=== PATIENT | female | born 1970 | race Hispanic/Latino ===

== ENCOUNTER 2019-03-30 20:33 | Emergency (ER) | payer BC, SELFPAY ==
--- NOTE | ~2019-03-30 | XR_ITS ---
EXAMINATION: XR chest 2V 03/30/2019 22:05 INDICATION: Cough PROCEDURE: 2 view chest COMPARISON: 03/05/2019 FINDINGS: The lungs are clear. The cardiomediastinal silhouette is within normal limits. There are no pleural effusions. There is no pneumothorax suspected. IMPRESSION: 1: NO ACUTE CARDIOPULMONARY DISEASE. Reviewed, dictated and finalized at [facility]. Reviewed, dictated and finalized at location A. KEN HANGER
--- NOTE | ~2019-03-30 | CT_ITS ---
EXAMINATION: CTA chest PE protocol DATE: 03/30/2019 23:53 ERGONOMIST INDICATION: Chest pressure. Tachycardia. Cough. TECHNIQUE: Computed tomographic angiography (CTA) of the chest was performed with 100 mL Omnipaque-35 0 intravenous contrast. The dose-length product was 272.63 mGy-cm. Maximum intensity projection 3D-re constructions of the aorta and other arteries were constructed by the technologist on a separate work station. Automated exposure control and iterative reconstruction technique were employed. COMPARISON: Chest x-ray dated 03/30/2019 FINDINGS: The study is technically adequate without evidence for pulmonary embolism. Heart size is no rmal. No pleural or pericardial effusion. No thoracic lymphadenopathy. No endobronchial lesions. No f ocal airspace consolidation. No evidence for aortic aneurysm or dissection. No pneumothorax. 2 mm lef t upper lobe nodule, image 37, likely benign. No acute osseous abnormality. There are multiple nonobs tructing bilateral renal stones, largest in the right kidney measuring approximately 1 cm. IMPRESSION: 1. No evidence for pulmonary embolism. No acute cardiopulmonary disease. 2: Nonobstructing bilateral nephrolithiasis. Reviewed, dictated and finalized at location A. NOMIST
[2019-03-30 20:40] VITALS: BP 149/78; PULSE 78; RESP 20; TEMP 37.3; O2SAT 100
[2019-03-30 21:36] LABS: Basophils Percent Auto 0.3 % (0.2-1.2); Eosinophils Absolute Auto 0.1 K/mm3 (0-0.3); Eosinophils Percent Auto 0.8 % (0-4.4); Hematocrit 40.2 % (37.0-47.0); Hemoglobin 12.9 g/dL (12.0-15.0); Immature Granulocyte Absolute 0.02 K/mm3 (0.00-0.031); Immature Granulocyte Percent A 0.3 % (0-0.5); Immature Platelet Fraction Pct 18.6 % (0.9-11.2); Lymphocytes Absolute Auto 2.52 K/mm3 (0.9-3.2); Lymphocytes Percent Auto 32.7 % (18.3-44.2); Mean Corpuscular HGB Conc 32.1 g/dl (32-36); Mean Corpuscular Hemoglobin 30.6 pg (26-34); Mean Corpuscular Volume 95.3 fl (80-100); Mean Platelet Volume 13.4 fl (7.4-10.4); Monocytes Absolute Auto 0.6 K/mm3 (0.1-0.6); Monocytes Percent Auto 7.3 % (2.6-8.5); Neutrophils Absolute Auto 4.5 K/mm3 (1.3-6.7); Neutrophils Percent Auto 58.6 % (45.5-73.1); Platelet Count Result 161 k/mm3 (150-375); Red Blood Count 4.22 M/mm3 (4.2-5.4); Red Cell Distribution Width 12.7 % (11.5-14.5); White Blood Count 7.7 K/mm3 (4.5-10.0)
--- NOTE | 2019-03-30 21:50 | ED.URI ---
HPI - URI/Sore Throat General Chief Complaint: Upper Respiratory Infection Stated Complaint: COUGH, CHEST PRESSURE, FAST HR Time Seen by Provider: 03/30/19 21:35 Source: patient Mode of arrival: ambulatory Limitations: no limitations History of Present Illness HPI Narrative: Patient is a 48-year-old female who presents for evaluation of chest pain, cough, congestion. Patient reports pressure over her center chest which is been intermittent over the past 4 days. Symptoms seem to come and go and have no aggravating or relieving factors. She does not notice a worsening of the symptoms with exertion. No shortness of breath. She does report a slight cough whenever she experiences the chest pressure. No abdominal pain, no nausea or vomiting. No fevers. She does report cough and congestion. Chest reports that she can feel palpitations when the chest pain comes on, but denies any palpitations. Patient denies leg swelling or redness. Patient has a history of hypertension. She does not smoke. No recent car or air travel. No recent surgeries. No history of diabetes. Related Data Allergies Allergy/AdvReac Type Severity Reaction Status Date / Time No Known Allergies Allergy Mild Verified 03/30/19 20:43 Review of Systems Review of Systems: Narrative: CONSTITUTIONAL: Denies fever, chills, or sweats. EYES: Denies visual changes, redness, or discharge. ENT: Reports rhinorrhea and congestion, denies sore throat CARDIOVASCULAR: Denies current chest pain, palpitations, or edema. RESPIRATORY: Reports cough, denies shortness of breath GASTROINTESTINAL: Denies abdominal pain, nausea, vomiting, or diarrhea. GENITOURINARY: Denies dysuria or hematuria. SKIN: Denies rash or itching. MUSCULOSKELETAL: Denies back pain, joint pain, or myalgia. NEUROLOGIC: Denies headache, numbness, or weakness. All systems reviewed & are unremarkable except as noted in HPI and below PMFSH Past Medical History Medical History (Updated 03/31/19 @ 01:26 by Marzena Aly MD) Anxiety Depression History of breast implant removal bilateral, 07 February 2019 Hypertension Kidney stone Surgical History Surgical History Hx of breast implants, bilateral Social History Social History Smoking status: Never smoker Second hand tobacco smoke exposure: No Alcohol intake: never Substance use: never Exam Narrative: Exam Narrative: GENERAL: Well-appearing, well-nourished, and in no acute distress. HEAD: Normocephalic, atraumatic. EYES: PERRLA and EOMI. ENT: Nares clear, no rhinorrhea or epistaxis. Mucous membranes moist. NECK: Supple. CHEST: Clear to auscultation. No respiratory distress. No chest wall tenderness. HEART: Regular rate and rhythm. No murmur heard. Normal peripheral pulses. ABDOMEN: Soft, nontender, nondistended, normal active bowel sounds. EXTREMITIES: Normal range of motion. No edema. No pain with palpation of bilateral calves. No erythema. SKIN: Warm, dry, no rash. NEURO: No focal deficits. Alert and oriented X3. Course Course Emergency Course: Patient is presenting with several symptoms including cough and cold type symptoms as well as chest pressure. Pressure has been intermittent over the past 4 days. Seems less consistent with anginal type pain, but when patient was offered nitroglycerin and morphine, patient declined stating that she currently was not having any pain. Patient with normal EKG without ischemic changes. Initial troponin is normal. CTA performed which shows no evidence of aortic pathology or pulmonary embolism. Repeat troponin also normal. Influenza is negative. Other laboratory results are reassuring. Patient had no recurrent chest pain in the ER, in the setting of low heart score, I feel she may follow-up outpatient for atypical chest pain, as for the patient's upper respiratory infection I advised symptomatic care. Kaylee
--- NOTE | 2019-03-30 21:51 | ECG_ITS ---
Measurements Intervals Victor Rate: 72 P: 3 OK: 144 QRS: 6 QRSD: 77 T: 16 QT: 379 QTc: 417 Interpretive Statements SINUS RHYTHM NORMAL ECG Electronically Signed On 03-31-2019 6:46:21 EP TECH by Kevin Ellis D.O.
[2019-03-30 22:09] LABS: Blood Urea Nitrogen 11 mg/dL (7-17); Calcium 9.4 mg/dL (8.4-10.2); Carbon Dioxide 22 mmol/L (22-30); Chloride 100 mmol/L (98-107); Estimated CRCL calculation 82 ml/min; Estimated Glomerular Filt Rate > 60; Glucose 118 mg/dL (65-105); Potassium 3.9 mmol/L (3.4-5.0); Sodium 138 mmol/L (137-145)
[2019-03-30 22:16] VITALS: BP 140/79; PULSE 75; RESP 15; O2SAT 99
[2019-03-30] MEDS: ACETAMINOPHEN 500 MG TABLET 1000 MG PO (22:21)
[2019-03-30] MEDS: ONDANSETRON INJ 4 MG/2 ML VIAL IV PUSH (22:22)
[2019-03-30] MEDS: SODIUM CHLORIDE 0.9% IV 1,000 ML 999 ML IV CONT (22:22)
[2019-03-30 22:31] LABS: Lipase 138 U/L (23-300)
[2019-03-30 22:35] LABS: INR 0.9; Prothrombin Time 12.1 Seconds (11.1-14.7)
[2019-03-30 22:36] LABS: Add Urine Microscopic? YES; Appearance Urine Clear (Clear); Bilirubin Urine Negative (Negative); Blood Urine Negative (Negative); Color Urine Straw (Yellow); Glucose Urine UA Negative (Negative); Ketones Urine Negative (Negative); Leukocyte Esterase Ur Trace LEU/UL (Negative); Mucus Urine Rare /lpf; Nitrate Urine Negative (Negative); Protein Urine Negative (Negative); Specific Grav Ur 1.015 (1.001-1.035); Squamous Epithelial Cell Urine Rare /hpf (Few); Urobilinogen Urine Negative mg/dL (<2.0); WBC Urine 16-20 /hpf
[2019-03-30 22:36] LABS: Partial Thromboplastin Time 24.9 SECONDS (22.3-36.8)
[2019-03-30 22:44] LABS: Troponin I < 0.012 ng/mL (0.000-0.034)
[2019-03-30 23:49] VITALS: BP 127/70; PULSE 82; RESP 17; O2SAT 100
[2019-03-31 00:02] VITALS: BP 118/67; PULSE 72; RESP 14; O2SAT 100
[2019-03-31 00:03] LABS: D Dimer 0.47 ug/mL (<0.48)
[2019-03-31 00:45] VITALS: PULSE 73; RESP 16; O2SAT 99
[2019-03-31 01:04] LABS: Troponin I < 0.012 ng/mL (0.000-0.034)
[2019-03-31 01:30] VITALS: BP 121/71; PULSE 69; RESP 14; O2SAT 98
--- NOTE | 2019-04-07 07:00 | PC.NURSE ---
LATE ENTRY This note is being entered to document information to the patient's record. The following information was omitted on [03/30/19], ns stopped [id number] by [anderson hernandez].
== END 2019-03-31 01:49 | disposition home or self-care (01) ==
PROVIDERS: Emergency Medicine; Emergency Provider Emergency Medicine; PCP Family Medicine
DX: R07.89 Other chest pain (principal); J06.9 Acute upper respiratory infection, unspecified; F41.9 Anxiety disorder, unspecified; F32.9 Major depressive disorder, single episode, unspecified; I10 Essential (primary) hypertension; Z87.442 Personal history of urinary calculi
CPT/HCPCS: 36415; 71046; 71275; 80048; 81001; 83690; 84484; 85025; 85055; 85380; 85610; 85730; 87086; 87804; 93005; 96374; 99284; A9270; J2405; J7030; Q9967

== ENCOUNTER → 2019-10-25 14:03 | Outpatient (CLI) | payer BC, SELFPAY ==
--- NOTE | ~2019-10-25 | MM_ITS ---
EXAMINATION: MM screening yina BI w jessica HISTORY: Screening mammogram TECHNIQUE: Craniocaudal and mediolateral oblique 3-D tomosynthesis images were obtained and synthetic 2-D images were generated. CAD analysis was submitted and interpreted. COMPARISON: 08/04/2018 bilateral implant digital screening mammogram 04/21/2018 bilateral implant diagnostic mammogram 06/22/2017, 04/24/2016 bilateral implant digital screening mammogram examinations BREAST PARENCHYMAL COMPOSITION: The breasts are heterogeneously dense, which may obscure small masses . FINDINGS: Breast implants have been removed as of January 2019. There is no evidence of suspicious m ass, calcification, or architectural distortion to suggest malignancy in either breast. There has bee n no suspicious interval change. IMPRESSION: 1. No mammographic evidence of malignancy. 2. Recommend routine screening mammography in one year. BI-RADS Category 1: Negative Reviewed, dictated and finalized at location [facility].
== END ==
DX: Z12.31 Encounter for screening mammogram for malignant neoplasm of breast (principal)
CPT/HCPCS: 77063; 77067

== ENCOUNTER → 2020-11-22 12:33 | Outpatient (CLI) | payer BC, SELFPAY ==
--- NOTE | ~2020-11-22 | MM_ITS ---
EXAMINATION: MM screening yina BI w jessica HISTORY: Screening TECHNIQUE: Craniocaudal and mediolateral oblique 3-D tomosynthesis images were obtained and synthetic 2-D images were generated. CAD analysis was submitted and interpreted. COMPARISON: Comparison to multiple prior studies sequentially, with oldest reviewed study dated 03/26. BREAST PARENCHYMAL COMPOSITION: The breasts are heterogenously dense, which may obscure small masses. FINDINGS: There is no evidence of suspicious mass, calcification, or architectural distortion to sugg est malignancy in either breast. There has been no suspicious interval change. IMPRESSION: 1. No mammographic evidence of malignancy. 2. Recommend routine screening mammography in one year. BI-RADS Category 1: Negative Reviewed, dictated and finalized at location A.
== END ==
DX: Z12.31 Encounter for screening mammogram for malignant neoplasm of breast (principal)
CPT/HCPCS: 77063; 77067

== ENCOUNTER 2020-12-18 13:17 | Emergency (ER) | payer BC, SELFPAY ==
[2020-12-18 13:26] VITALS: BP 141/79; PULSE 78; RESP 16; TEMP 36.9; O2SAT 100
--- NOTE | 2020-12-18 13:51 | ED.URI ---
HPI - URI/Sore Throat General Chief Complaint: Upper Respiratory Infection Stated Complaint: Cough History of Present Illness HPI Narrative: This is a 50-year-old female that presents to urgent care [place]-speaking complaining of cough and congestion for 2 weeks. Patient states that the symptoms continue to get worse and are not improving. Related Data Home Medications Medication Instructions Recorded Confirmed amitriptyline 12/18/20 hydroxyzine HCl 12/18/20 lisinopril 12/18/20 magnesium oxide mg 12/18/20 Allergies Allergy/AdvReac Type Severity Reaction Status Date / Time No Known Allergies Allergy Mild Verified 12/18/20 13:23 Review of Systems Review of Systems: cough, sinus pressure, congestion pain in head All systems reviewed & are unremarkable except as noted in HPI and below PMFSH Past Medical History Medical History Anxiety Depression Hypertension Kidney stone Prediabetes Vitamin D deficiency Surgical History Surgical History History of abdominoplasty 2016 History of breast implant removal bilateral, 07 February 2019 Hx of breast implants, bilateral 2017 Family History Family History Other No pertinent family history Social History Social History Smoking status: Never smoker Second hand tobacco smoke exposure: No Alcohol intake: never Substance use: never Comments At time as signature, I have reviewed and agree with nursing past medical, social, surgical and family history. Please see nursing chart for further information. There is no relevant family history pertinent to the presenting complaint. Exam Narrative: GENERAL:illappearing, well-nourished, and in no acute distress. HEAD:Normocephalic, atraumatic. EYES: PERRLA . ENT: Nares clear, moderate rhinorrhea sinus pressure T-zone pain with headache CHEST: Clear to auscultation. No respiratory distress. HEART: Regular rate and rhythm. ABDOMEN: Soft, nontender, nondistended, normal active bowel sounds. EXTREMITIES: Normal range of motion. No edema. SKIN: Warm, dry, no rash. NEURO: No focal deficits. Alert and oriented x3. Course Vital Signs Vital signs: Vital Signs Temperature 98.5 F 12/18/20 13:26 Pulse Rate 78 12/18/20 13:26 Respiratory Rate 16 12/18/20 13:26 Blood Pressure 141/79 H 12/18/20 13:26 Pulse Oximetry 100 12/18/20 13:26 Temperature 98.5 F 12/18/20 13:26 Pulse Rate 78 12/18/20 13:26 Respiratory Rate 16 12/18/20 13:26 Blood Pressure 141/79 H 12/18/20 13:26 Pulse Oximetry 100 12/18/20 13:26 MDM - URI/Sore Throat Differential Diagnosis Differential diagnosis: Likely upper respiratory infection, croup, sinusitis, bronchitis, influenza and pharyngitis Discharge Plan Discharge Clinical Impression: Sinusitis, Nausea & vomiting Patient Disposition: Home, Self-Care Condition: Stable Instructions: Antibiotic Form, Rhinosinusitis (ED) Additional Instructions: Recommend antihistamine such as Benadryl at night time and Claritin/Zyrtec/Michelle during the day Also, recommend symptomatic treatment includes: rest, fluids, and increase humidity of the air at home. Recommend Acetaminophen or nonsteroidal anti-inflammatory agents (NSAIDs) as directed in the bottle to reduce fever and/pain/headache. Avoid smoking/second-hand smoke. Limit visits to areas with large crowds. Please schedule a follow-up visit with your personal physician for further evaluation and treatment within 3-5days. Including recheck and discussion of your blood pressure. If your symptoms persist, change or worsen significantly before you can contact your personal physician then please, without delay, go to the emergency department for further evaluation Prescriptions:
== END 2020-12-18 14:10 | disposition home or self-care (01) ==
PROVIDERS: Emergency Provider Nurse Practitioner Family
DX: J32.9 Chronic sinusitis, unspecified (principal); R11.2 Nausea with vomiting, unspecified; I10 Essential (primary) hypertension; E55.9 Vitamin D deficiency, unspecified; R73.03 Prediabetes; F41.9 Anxiety disorder, unspecified; F32.A Depression, unspecified
CPT/HCPCS: 99213; G0463

== ENCOUNTER 2021-07-22 10:54 | Emergency (ER) | payer BC, SELFPAY ==
--- NOTE | ~2021-07-22 | CT_ITS ---
EXAMINATION: CT brain wo con DATE: 07/22/2021 12:20 INDICATION: Fall. Patient struck occipital region. Headache. TECHNIQUE: Computed tomography (CT) of the head was performed without intravenous contrast. The mA wa s adjusted according to patient size. Iterative reconstruction technique was employed. Exam dose: 60 5.33 mGy-cm total exam DLP. COMPARISON: None FINDINGS: No intracranial mass lesion or hemorrhage or cerebrovascular accident. No midline shift or mass effect. Normal hillman-white matter differentiation. Normal ventricular size. No subdural or epidur al hematoma is detected. The orbital contents are unremarkable. The mastoid air cells and included paranasal sinuses are normally developed and aerated. No fracture or bone destruction of the cranial vault. IMPRESSION: Negative Reviewed, dictated and finalized at [facility]. Reviewed, dictated and finalized at location A. IMPRESSION: Negative
[2021-07-22 10:58] VITALS: BP 154/90; PULSE 82; RESP 20; TEMP 36.7; O2SAT 100
[2021-07-22 13:26] VITALS: BP 118/68; PULSE 72; RESP 16; TEMP 36.5; O2SAT 100
--- NOTE | 2021-07-22 18:26 | ED.FALL ---
HPI - Fall General Chief Complaint: Fall Stated Complaint: fall, hit head, blood thinner Time Seen by Provider: 07/22/21 11:23 Source: patient Mode of arrival: ambulatory Limitations: no limitations History of Present Illness HPI Narrative: 50-year-old female presents today with complaints of posterior head pain since today when she fell. Patient was drinking throughout the day and had fallen backwards hitting the posterior side of her head. Patient was since then has noted a knot, headache. Patient denies vision changes, nausea. Patient alert and oriented x4, no change in mental status, at bedside. Patient denies LOC at time of injury. Patient concerned just due to still having pain. Related Data Home Medications Medication Instructions Recorded Confirmed amitriptyline 25 mg tablet 12/18/20 hydroxyzine HCl 25 mg tablet 12/18/20 lisinopril 10 mg tablet 12/18/20 magnesium oxide 400 mg (241.3 mg mg 12/18/20 magnesium) tablet Allergies Allergy/AdvReac Type Severity Reaction Status Date / Time No Known Allergies Allergy Mild Verified 12/18/20 13:23 Review of Systems Review of Systems: CONSTITUTIONAL: Denies fever, chills, or sweats. EYES: Denies visual changes, redness, or discharge. ENT: Denies rhinorrhea, congestion, sore throat, or otalgia. CARDIOVASCULAR: Denies chest pain, palpitations, or edema. RESPIRATORY: Denies cough or dyspnea. GASTROINTESTINAL: Denies abdominal pain, nausea, vomiting, or diarrhea. GENITOURINARY: Denies dysuria or hematuria. SKIN: Denies rash or itching. MUSCULOSKELETAL: Denies back pain, joint pain, or myalgia. NEUROLOGIC: Headache, posterior head pain with swelling. Denies headache, numbness, dizziness, or weakness. PSYCHIATRIC: Denies anxiety or depression. [facility] Past Medical History Medical History Anxiety Depression Hypertension Kidney stone Prediabetes Vitamin D deficiency Surgical History Surgical History History of abdominoplasty 2016 History of breast implant removal bilateral, 07 February 2019 Hx of breast implants, bilateral 2017 Family History Family History Other No pertinent family history Social History Social History Smoking status: Never smoker Second hand tobacco smoke exposure: No Alcohol intake: never Substance use: never Exam Narrative: GENERAL: Well-appearing, well-nourished, and in no acute distress. HEAD: Swelling noted to posterior dorsal head. Tenderness with palpation. EYES: PERRLA and EOMI. ENT: Nares clear, no rhinorrhea or epistaxis. Mucous membranes moist. Oropharynx without tonsillar hypertrophy exudate or other lesions. Bilateral TMs pearly hillman nonbulging NECK: Supple. No adenopathy or masses. No carotid bruits or JVD. No spinal process tenderness. CHEST: Clear to auscultation. No respiratory distress. No wheezes rales or rhonchi HEART: Regular rate and rhythm. No murmur heard. Normal peripheral pulses. ABDOMEN: Soft, nontender, nondistended, normal active bowel sounds. EXTREMITIES: Normal range of motion. No edema. SKIN: Warm, dry, no rash. NEURO: No focal deficits. Alert and oriented x3. PSYCH: Normal mood and affect. Course Vital Signs Vital signs: Vital Signs Temperature 36.7 C 07/22/21 10:58 Pulse Rate 82 07/22/21 10:58 Respiratory Rate 20 07/22/21 10:58 Blood Pressure 154/90 H 07/22/21 10:58 Pulse Oximetry 100 07/22/21 10:58 Oxygen Delivery Room Air 07/22/21 10:58 Temperature 36.5 C 07/22/21 13:26 Pulse Rate 72 07/22/21 13:26 Respiratory Rate 16 07/22/21 13:26 Blood Pressure 118/68 07/22/21 13:26 Pulse Oximetry 100 07/22/21 13:26 Oxygen Delivery Room Air 07/22/21 10:58 MDM - Fall MDM Narrative Medical decision brennen
== END 2021-07-22 13:28 | disposition home or self-care (01) ==
PROVIDERS: Emergency Provider Nurse Practitioner Family
DX: S00.93XA Contusion of unspecified part of head, initial encounter (principal); I10 Essential (primary) hypertension; W19.XXXA Unspecified fall, initial encounter
CPT/HCPCS: 70450; 99284

== ENCOUNTER 2023-01-10 13:42 | Emergency (ER) | payer BC, SELFPAY ==
--- NOTE | ~2023-01-10 | XR_ITS ---
EXAMINATION: XR chest 2V 01/10/2023 14:35 INDICATION: Dry cough and wheezing PROCEDURE: 2 view chest COMPARISON: 03/30/2019 FINDINGS: The lungs are clear. The cardiomediastinal silhouette is within normal limits. There are no pleural effusions. There is no pneumothorax suspected. IMPRESSION: 1: NO ACUTE CARDIOPULMONARY DISEASE. Reviewed, dictated and finalized at location A. SWITCHER
[2023-01-10 13:57] VITALS: BP 172/85; PULSE 82; RESP 16; TEMP 37.2; O2SAT 99
--- NOTE | 2023-01-10 14:12 | ED.URI ---
HPI - URI/Sore Throat General Chief Complaint: Upper Respiratory Infection Stated Complaint: chest hurts,back hurts,cough Time Seen by Provider: 01/10/23 14:30 Source: patient Mode of arrival: ambulatory Limitations: no limitations History of Present Illness HPI Narrative: 52-year-old female presents with complaint of dry cough, fatigue, chest congestion for 3-4 days. Afebrile. Has been sleeping on couch due to coughing. Now complaining of left upper back pain with coughing. Has not taken any [id number] pain med to treat. No chest pain or shortness of breath. Does not want COVID testing. taking [id number] DayQuil NyQuil cold and flu. All systems reviewed and negative except as noted above. Related Data Home Medications Medication Instructions Recorded Confirmed magnesium oxide 400 mg (241.3 mg mg 12/18/20 magnesium) tablet ascorbic acid (vitamin C) 250 mg 01/10/23 tablet aspirin 81 mg chewable tablet 01/10/23 atorvastatin 20 mg tablet mg 01/10/23 ferrous sulfate 325 mg (65 mg mg 01/10/23 iron) tablet (FeroSul) hydrochlorothiazide 25 mg tablet mg 01/10/23 Allergies Allergy/AdvReac Type Severity Reaction Status Date / Time No Known Allergies Allergy Mild Verified 01/10/23 14:03 Review of Systems Review of Systems: CONSTITUTIONAL: Denies fever, chills, or sweats. EYES: Denies visual changes, redness, or discharge. ENT: Denies rhinorrhea, congestion, sore throat, or otalgia. CARDIOVASCULAR: Denies chest pain, palpitations, or edema. RESPIRATORY: Reports cough chest congestion. Denies dyspnea. GASTROINTESTINAL: Denies abdominal pain, nausea, vomiting, or diarrhea. GENITOURINARY: Denies dysuria or hematuria. SKIN: Denies rash or itching. MUSCULOSKELETAL: Denies back pain, joint pain, or myalgia. NEUROLOGIC: Denies headache, numbness, or weakness. PSYCHIATRIC: Denies anxiety or depression. All other systems reviewed are negative, except as documented in HPI. [facility] Past Medical History Medical History Anxiety Depression Hypertension Kidney stone Prediabetes Vitamin D deficiency Surgical History Surgical History History of abdominoplasty 2016 History of breast implant removal bilateral, 07 February 2019 Hx of breast implants, bilateral 2017 Family History Family History Other No pertinent family history Social History Social History Smoking status: Never smoker Second hand tobacco smoke exposure: No Alcohol intake: never Substance use: never Comments At time of signature, agree with nursing past medical, surgical, social and family history. There is no relevant family history pertinent to the presenting complaint. Exam Narrative: GENERAL: This is a well-nourished, well-developed patient, in no apparent distress. HEAD: normocephalic, atraumatic. EYES: PERRL. Sclera clear/white. Vision is grossly intact. EARS: External ears normal, auditory canals clear and without drainage, TMs normal without perforation. Hearing grossly intact. NOSE: External nose normal with no obvious nasal discharge, nares without redness, no rhinorrhea. THROAT: Mucous membranes moist, posterior pharynx clear. NECK: Neck supple, non-tender without lymphadenopathy, masses or thyromegaly. CARDIOVASCULAR: Regular rate and rhythm without murmurs, gallops, or rubs. RESPIRATORY: Clear to auscultation. Breath sounds equal bilaterally. No wheezes, rales, or rhonchi. SKIN: warm, Dry, intact with no suspicious lesions or rash, good texture and turgor. NEURO: awake, alert, and oriented to person, place and time. There were no obvious focal neurologic abnormalities. EXTREMITIES: No joint tenderness, effusion, or edema noted. BACK: Muscular tenderness left rhomboi
== END 2023-01-10 14:54 | disposition home or self-care (01) ==
PROVIDERS: Emergency Provider Nurse Practitioner Family; PCP Hospitalist
DX: J06.9 Acute upper respiratory infection, unspecified (principal); S29.012A Strain of muscle and tendon of back wall of thorax, initial encounter; X58.XXXA Exposure to other specified factors, initial encounter; I10 Essential (primary) hypertension; R73.03 Prediabetes; Z79.82 Long term (current) use of aspirin
CPT/HCPCS: 71046; 99213; G0463

== ENCOUNTER 2023-09-19 14:41 | Emergency (ER) | payer BC, SELFPAY ==
[2023-09-19 14:50] VITALS: BP 154/94; PULSE 85; RESP 16; TEMP 37.2; O2SAT 99
--- NOTE | 2023-09-19 15:19 | ED.EYEPROB ---
HPI - Eye Problem General Chief complaint: Eye Problems Stated complaint: right side eye pain Time Seen by Provider: 09/19/23 14:55 Source: patient Mode of arrival: ambulatory Limitations: no limitations History of Present Illness HPI Narrative: Myriam is a 52-year-old female patient presenting to the clinic today with complaints of right-sided temporal pain this been going on for 4 days and gradually getting worse. Feels as though there is a pulsing throbbing sensation over the right temporal lobe. Denies any visual changes. Does have some nausea without headache or vomiting. Related Data Home Medications Medication Instructions Recorded Confirmed magnesium oxide 400 mg (241.3 mg 400 mg PO DAILY 12/18/20 09/19/23 magnesium) tablet ascorbic acid (vitamin C) 250 mg 250 mg PO DAILY 01/10/23 09/19/23 tablet aspirin 81 mg chewable tablet 81 mg PO DAILY 01/10/23 09/19/23 atorvastatin 20 mg tablet 20 mg PO DAILY 01/10/23 09/19/23 ferrous sulfate 325 mg (65 mg 325 mg PO DAILY 01/10/23 09/19/23 iron) tablet (FeroSul) hydrochlorothiazide 25 mg tablet 25 mg PO DAILY 01/10/23 09/19/23 metformin 500 mg tablet 500 mg PO DAILY 09/19/23 09/19/23 Allergies Allergy/AdvReac Type Severity Reaction Status Date / Time No Known Allergies Allergy Mild Verified 09/19/23 14:43 Review of Systems Review of Systems: Pertinent positives per HPI. Patient denies any fever, chills, rash, headache, visual changes, dizziness, cough, runny nose, sore throat, shortness of breath, chest pain, palpitations, nausea, vomiting, diarrhea, constipation, abdominal pain, or any urinary issues. [facility] Past Medical History Medical History Anxiety Depression Hypertension Kidney stone Prediabetes Vitamin D deficiency Surgical History Surgical History History of abdominoplasty 2016 History of breast implant removal bilateral, 07 February 2019 Hx of breast implants, bilateral 2017 Family History Family History Other No pertinent family history Social History Social History Smoking status: Never smoker Second hand tobacco smoke exposure: No Alcohol intake: never Substance use: never Comments At the time of my signature, I reviewed and agree with the nursing past medical, surgical, social, and family history. There is no relevant family history pertinent to the patient complaint. Exam Narrative: General: Well-developed, well nourished, in no apparent distress Head: Normocephalic, atraumatic Eyes: Pupils equally round and reactive to light bilaterally, EOM intact, sclera and conjunctive clear, no discharge, lids normal, tender to palpation over the right temporal area Ears: TMs intact and clear, ear canals clear, no drainage, grossly hearing normal. Nose: Nares patent, no discharge, no inflammation, no sinus tenderness. Mouth: Oropharynx without lesions or masses, good dentition, MMM. Neck: Supple, trachea midline, no enlargement of anterior or posterior cervical nodes, no thyroid masses or goiter palpable. Cardio: Regular rate and rhythm, s1 and s2 normal, no murmur appreciated. Resp: Clear to auscultation bilaterally anteriorly and posteriorly, no rhonchi, rales, wheezing or rubs Course Course Emergency Course: Portions of this record may have been created with voice recognition software. Level of Care: Express Care Visit Vital Signs Vital signs: Vital Signs Temperature 37.2 C 09/19/23 14:50 Pulse Rate 85 09/19/23 14:50 Respiratory Rate 16 09/19/23 14:50 Blood Pressure 154/94 H 09/19/23 14:50 Pulse Oximetry 99 09/19/23 14:50 Oxygen Delivery Room Air 09/19/23 14:50 Temperature 37.2 C 09/19/23 14:50 Pulse Rate 85 09/19/23 14:50 Respirato
== END 2023-09-19 15:18 | disposition short-term general hospital (02) ==
PROVIDERS: Emergency Provider Nurse Practitioner Family; PCP Hospitalist
DX: R51.9 Headache, unspecified (principal); I10 Essential (primary) hypertension; R73.03 Prediabetes; Z79.82 Long term (current) use of aspirin
CPT/HCPCS: 99212; G0463

== ENCOUNTER 2024-11-05 06:37 | Emergency (ER) | payer BC, SELFPAY ==
--- NOTE | ~2024-11-05 | XR_ITS ---
Examination: XR hand LT min 3V Clinical History: Injuries, pain Comparison: None Technique: 3 views left hand Findings/impression: 1. Equivocal for nondisplaced fracture distal tuft fourth finger. 2. Otherwise no acute abnormality identified left hand. Reviewed, dictated and finalized at location R.
[2024-11-05 06:38] VITALS: BP 138/88; PULSE 110; RESP 20; TEMP 36.8; O2SAT 98
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
--- NOTE | 2024-11-05 08:00 | PC.NURSE ---
Had conversation with pt about recieving a teatnus shot and her friend said that she was pretty sure that the patient had had one in the last 5 years.
--- NOTE | 2024-11-05 08:29 | PC.NURSE ---
Wound care has been performed on both the third and fourth digit of the left hand. Wounds were cleansed with saline soaked sterile gauze and cotton swabs. Pt did show some distress while cleansing was being performed. Wound was covered with saline soaked gauze until it is decided what the proper dressing is.
--- NOTE | 2024-11-05 09:51 | PC.NURSE ---
Pt was asleep in the room when I went in to reassess and ask about the teatnus shot again with the mri supervisor.
[2024-11-05] MEDS: TETANUS,DIPHTHERIA,AC PERTUSSIS ADULT (0.5 ML) BOOSTRIX IM (11:26)
--- NOTE | 2024-11-05 11:30 | PC.NURSE ---
TERE car repairer helper was used to talk to the patient about the Tdap vaccine. Fieldwork Coordinator was Myles #[phone]. He assisted with asking about the last time she recieved a Tdap vaccine and it came to conclusion that it was requried for her. Pt agreed to the vaccine after explanation of the vaccine schedule and the reasoning about why it was needed.
[2024-11-05 12:28] VITALS: BP 146/93; PULSE 88; RESP 18; O2SAT 100
--- NOTE | 2024-11-15 08:00 | PC.NURSE ---
/LATE ENTRY /This note is being entered to document information to the patient's record. The following information was omitted on 11/05/2024, by Shelley Jurado Per Dr. Shah, verbal order read back for finger splint application done for lt ring finger.
== END 2024-11-05 12:31 | disposition home or self-care (01) ==
PROVIDERS: Emergency Provider Emergency Medicine; PCP Hospitalist
DX: S62.665A Nondisplaced fracture of distal phalanx of left ring finger, initial encounter for closed fracture (principal); S61.315A Laceration without foreign body of left ring finger with damage to nail, initial encounter; F32.A Depression, unspecified; F41.9 Anxiety disorder, unspecified; Z87.442 Personal history of urinary calculi; I10 Essential (primary) hypertension; Z23 Encounter for immunization; X58.XXXA Exposure to other specified factors, initial encounter
CPT/HCPCS: 11730; 29130; 73130; 90471; 90715; 99284; J2003

== ENCOUNTER 2025-01-09 13:36 | Outpatient (CLI) | payer BC, SELFPAY ==
--- NOTE | ~2025-01-09 | XR_ITS ---
EXAMINATION: XR finger 3rd LT min 2V, 01/09/2025 13:50 HEAVY DUTY CUSTODIAN HISTORY: M20.019 - Mallet finger of unspecified finger(s) COMPARISON: No comparisons available. Findings: No acute fracture or malalignment. No significant degenerative changes. Soft tissues unremarkable. Impression: No acute fracture or malalignment. Reviewed, dictated and finalized at location P. Y DUTY CUSTODIAN Impression: No acute fracture or malalignment.
--- OUTSIDE RECORDS SUMMARY | 2025-01-09 14:44 | XMS_ITS | Clinical Summary ---
Author Organization [facility] [address] [place] [address] Address [address] [place] [address] Care Team Providers Care Street Light Servicer Supervisor Name Role Phone Radha Peterson MD Primary Care Pro vider Allergies No known active allergies Medications magnesium oxide 400 mg magnesium Capsule Take 400 mg by mouth daily at bedtime. 1 Active hydroCHLOROthia zide 25 mg tablet Take 25 mg by mouth daily. 3 Active ferrous sulfate 325 mg (65 mg iron) tablet Take 325mg ferrous sulfate every other day. Take with 250mg ascorbic acid tablet of half a glass of orange juice to enhance absorption. Take two hours before, or four hours after, ingestion of antacids/heartb urn. Take separately from calcium-contain ing foods and beverages (milk), calcium supplements, cereals, dietary fiber, tea, coffee, and eggs. 3 Active Active Problems Problem Noted Date Diagnosed Date Gastroesophageal reflux disease 04/16/2021 Overview (04/23/2021): Added automatically from request for surgery [id number] Kidney stone 03/18/2021 Overview (04/23/2021): Added automatically from request for surgery [id number] Pure hypercholesterolemia 02/11/2021 Overview (04/23/2021): Last Assessment & Plan: ASVCD 1.7% 10y risk, discussed with patient Hypertension, essential 07/19/2020 Overview (04/23/2021): Last Assessment & Plan: Lisinopril d/c 2/2 cough Will start hydrochlorothiazide given history of calcium oxalate stones Moderate episode of recurrent major depressive d isorder 06/22/2020 Overview (04/23/2021): Last Assessment & Plan: Significantly improved on amitriptyline, continue Coronary atherosclerosis 07/11/2015 Chest pain 06/26/2015 Overview (04/23/2021): Last Assessment & Plan: AFVSS, exam benign EKG: NSR Check labs to risk stratify History of hypertension, but BP within normal limits. 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 Gender Identity Not on file Sexual Orientation Not on file Last Filed Vital Signs Vital Sign Reading Time Taken Comments Blood Pressure 134/86 02/17/2023 10:57 AM CAT SCANNER OPERATOR Pulse - - Temperature - - Respiratory Rate - - Oxygen Saturation - - Inhaled Oxygen Concentration - - Weight 70.2 kg (154 lb 12.8 oz) 024 10:57 AM CAT SCANNER OPERATOR Height 162.6 cm (5' 4) 11/17/2022 2:30 PM CDT Body Mass Index 26.57 11/17/2022 2:30 PM CDT Plan of Treatment Health Maintenance Due Date Last Done Comments HEPATITIS B VACCINES (1 of 3 - 19+ 3-dose series) 12/10/1990 COLORECTAL SCREENING 12/10/2016 Colorectal Cancer Screening 12/10/2016 FIT-DNA Q 3 years 12/10/2016 FIT/FOBT Q 1 year 12/10/2016 Flex Sig/CT Colonography Q 5 years 12/10/2016 ZOSTER VACCINE (1 of 2) 12/10/2021 BREAST CANCER SCREENING 08/16/2023 08/15/2022 PAP SMEAR 04/23/2024 04/23/2021 INFLUENZA VACCINE (#1) 2024 COVID-19 Vaccine ( season) 2024 07/10/2020, 06/25/2020, 06/04/2020 CERVICAL CANCER SCREENING 04/23/2026 HPV/Cotest (21-29) 04/23/2026 04/23/2021 HPV/Cotest (30-65) 04/23/2026 04/23/2021 DTAP/TDAP/TD VACCINES (2 - T d or Tdap) 12/06/2029 12/07/2019 Procedures Procedure Name Priority Date/Time Associated Diagnosis Comments CERV/VAG CYTO AGE BASED SCREEN PAP W CT/NG, TRICH Routine 04/23/2021 2:26 PM CDT Encounter for gynecological examination without abnormal finding from Last 3 Months or Most Recently Relevant to Health Maintenance Results * CERV/VAG CYTO AGE BASED SCREEN PAP W CT/NG, TRICH (04/23/2021 2:26 PM CDT) SEE NOTE [facility] Comment: This order for age-based cervical cancer and STI screening follows ACOG guidelines(PB 168, 140, IQU259). See individual assays for performing site location. CLINICAL INFORMATION [facility] Comment:Information not prov ided LAST MENSTRUAL PERIOD [facility] Comment:INFORMATION NOT PROV IDED PREV PAP: [facility] Comment:INFORMATION NOT PROV IDED PREV BX: [facility] Comment:INFORMATION NOT PROV IDED SOURCE [facility] Comment:Endocervix ADEQUACY: [facility] Comment: Satisfactory for evaluation. Endocervical/transformation zone component absent. Age and/or menstrual status not provided PAP INTERP [facility] Comment:Negative for intraep ithelial lesion or malignancy. COMMENT (PAP TEST) [facility] Comment: This Pap test has been evaluated with computer assisted technology. MANAGER LINUX: [facility] Comment: AMW, CT(ASCP) CT screening location: [place] [address] [place] [address] REVIEW MANAGER LINUX: [facility] Comment: FOX MCDONNELL(ASCP) CT screening location: [place] [address] [place] [address] SEE NOTE [facility] Comment: EXPLANATORY NOTE: The Pap is a screening test for cervical cancer. It is not a diagnostic test and is subject to false negative and false positive results. It is most reliable when a satisfactory sample, regularly obtained, is submitted with relevant clinical findings and history, and when the Pap result is evaluated along with historic and current clinical information. HPV E6/E7 Not Detected Not Detected [facility] Comment: Methodology: Seam Presser-Mediated Amplification This assay detects E6/E7 viral messenger RNA (mRNA) from 14 high-risk HPV types (16,18,31,33,35,39,45,51,52,56,58,59,66,68). The analytical performance characteristics of this assay have been determined by [email or web address]. The modifications have not been cleared or approved by the FDA. This assay has been validated pursuant to the CLIA regulations and is used for clinical purposes. For additional information, please refer to http://[email or web address]/faq/NTT490s2 (This link if provided for information/ educational purposes only.) C TRAC RNA NOT DETECTED NOT DETECTED [facility] N.GONORRHOEAE RNA, TMA NOT DETECTED NOT DETECTED [facility] SEE NOTE [facility] Comment: The analytical performance characteristics of this assay, when used to test SurePath(TM) specimens have been determined by [email or web address]. The modifications have not been cleared or approved by the FDA. This assay has been validated pursuant to the CLIA regulations and is used for clinical purposes. For additional information, please refer to https://[email or web address]/faq/IVL964 (This link is being provided for information/ educational purposes only.) TRICHOMONAS VAGINALIS,QUALITAT CHERELLE,PAP VIAL NOT DETECTED NOT DETECTED [facility] Comment: The analytical performance characteristics of this assay have been determined by [email or web address]. The modifications have not been cleared or approved by the FDA. This assay has been validated pursuant to the CLIA regulations and is used for clinical purposes. For additional information, please refer to [email or web address] faq/Trichomonastma (This link is being provided for information/ educational purposes only.) Test Performed at: [email or web address] [id number] [address] [id number] David Valdivia D.O., MPH SL Genital SWAB OF ENDOCERVIX / Unknown 04/23/2021 2:26 PM CDT 04/24/2021 4:21 AM CDT Daniel Haynes MD PATHOLOGY/CYTOLOGY ORD ERABLES Final Result [facility] [address] [place] [address] from Last 3 Months or Most Recently Relevant to Health Maintenance Insurance Care Teams Street Light Servicer Supervisor Relationship Specialty Start Date End Date Radha Peterson MD PCP - General Family Practice 04/23/21
--- OUTSIDE RECORDS SUMMARY | 2025-01-09 14:44 | XMS_ITS | Clinical Summary ---
Author Organization [facility] Address [address] [place] [address] Care Team Providers Care Commercial Pilot Name Role Phone Radha Peterson MD Primary Care Pro vider Chandler Gamble MD Unavailable [phone] Allergies No known active allergies Medications ascorbic acid (VITAMIN C) 250 mg tabletIndications: History of iron deficiency anemia Take 1 tablet (250 mg total) by mouth every other day With iron 45 tablet 1 5 Active aspirin 81 mg chewable tabletIndications: Coronary artery disease involving tlingit [place] coronary artery of tling[place] & [place] heart without angina pectoris,Atheroscl erosis of aorta Take 1 tablet (81 mg total) by mouth daily 90 tablet 5 026 Active ferrous sulfate 325 mg (65 mg of elemental iron) tabletIndications: Iron Deficiency Anemia Take 325mg ferrous sulfate every other day. Take with 250mg ascorbic acid tablet of half a glass of orange juice to enhance absorption. Take two hours before, or four hours after, ingestion of antacids/heart burn. Take separately from calcium-contai sabino foods and beverages (milk), calcium supplements, cereals, dietary fiber, tea, coffee, and eggs. 45 tablet 1 5 Active hydroCHLOROthiazid e (HYDRODIURIL) 25 mg tabletIndications: Hypertension associated with diabetes (HCC),History of kidney stones Take 1 tablet (25 mg total) by mouth daily 90 tablet 1 5 Active magnesium oxide 400 mg magnesium capsuleIndications :Migraine without status migrainosus, not intractable, unspecified migraine type Take 400 mg by mouth nightly 90 capsule 1 5 Active metFORMIN (GLUCOPHAGE) 1,000 mg tabletIndications: Controlled type 2 diabetes mellitus with complication, without long-term current use of insulin Take 1 tablet (1,000 mg total) by mouth 2 (two) times a day with meals 180 tablet 1 5 026 Active atorvastatin (LIPITOR) 80 mg tabletIndications: Mixed diabetic hyperlipidemia associated with type 2 diabetes mellitus (HCC),Coronary artery disease involving tling[place] coronary artery of tling[place] & [place] heart without angina pectoris,Atheroscl erosis of aorta Take 1 tablet (80 mg total) by mouth daily 90 tablet 1 5 026 Active norethindrone (MICRONOR) 0.35 mg tablet Take 1 tablet (0.35 mg total) by mouth daily 1 po qd at same time of day 84 tablet 3 5 Active ondansetron (ZOFRAN) 4 mg tablet Take 1 tablet (4 mg total) by mouth every 6 (six) hours 10 tablet 5 Active Active Problems Problem Noted Date Diagnosed Date Anxiety 10/13/2024 Depression 10/13/2024 Prediabetes 10/13/2024 Vitamin D deficiency 10/13/2024 Mixed diabetic hyperlipidemi a associated with type 2 diabetes mellitus 06/30/2024 Assessment & Plan (06/30/2024 2:34 PM CDT): Recheck Migraine without status migrainosus, not intract able 09/30/2023 Assessment & Plan (06/30/2024 2:27 PM CDT): ubrelvy as needed, avoid triptans given CAD Assessment & Plan (12/31/2023 1:56 PM PRINCIPAL WEB DEVELOPER): Stable ubrelvy as needed, avoid triptans given CAD Assessment & Plan (09/30/2023 3:41 PM CDT): Start ubrelvy as needed, avoid triptans given chest pain History of iron deficiency anemia 09/15/2022 Assessment & Plan (06/30/2024 2:27 PM CDT): Continue iron supplement Assessment & Plan (12/31/2023 1:33 PM PRINCIPAL WEB DEVELOPER): Continue iron supplement Assessment & Plan (09/24/2023 2:17 PM CDT): Continue iron supplement Assessment & Plan (03/19/2023 1:53 PM PRINCIPAL WEB DEVELOPER): Recheck Continue iron supplement Assessment & Plan (09/15/2022 1:46 PM CDT): Recent cbc within normal limits Recheck Continue iron supplement Controlled type 2 diabetes m ellitus with complication, without long-term current use of insulin 03/17/2022 Assessment & Plan (06/30/2024 2:27 PM CDT): Lab Results Component Value Date HGBA1C 6.6 (A) 06/30/2024 controlled Continue metformin 1000mg twice a day Assessment & Plan (12/31/2023 1:57 PM PRINCIPAL WEB DEVELOPER): Lab Results Component Value Date HGBA1C 6.2 09/24/2023 controlled Continue metformin 1000mg twice a day Assessment & Plan (09/30/2023 3:39 PM CDT): Lab Results Component Value Date HGBA1C 6.2 09/24/2023 Uncontrolled Recommend increasing metformin Assessment & Plan (03/19/2023 2:03 PM PRINCIPAL WEB DEVELOPER): Recheck A1c Restart metofmrin Assessment & Plan (09/15/2022 1:42 PM CDT): Lab Results Component Value Date HGBA1C 6.0 (H) 06/26/2022 Continue metformin Assessment & Plan (06/26/2022 1:13 PM CDT): Recheck a1c Continue metformin pending results Assessment & Plan (03/17/2022 1:47 PM PRINCIPAL WEB DEVELOPER): a1c 6.1>5.8 Continue metformin History of kidney stones 09/11/2021 Assessment & Plan (12/31/2023 1:33 PM PRINCIPAL WEB DEVELOPER): Following with urology Assessment & Plan (09/25/2021 1:21 PM CDT): Following with urology, s/p surgery Upcoming stent removal Gastroesophageal reflux disease 04/16/2021 Overview (04/16/2021): Added automatically from request for surgery [id number] Assessment & Plan (12/26/2021 1:17 PM PRINCIPAL WEB DEVELOPER): Try decreasing omeprazole to 20mg, let me know if worsenin/recurrent symptoms Assessment & Plan (09/25/2021 1:22 PM CDT): Reviewed EGD results Continue 40mg omeprazole Assessment & Plan (08/26/2021 8:52 AM CDT): Persistent symptoms Restart omeprazole Upcoming EGD Assessment & Plan (05/17/2021 2:28 PM CDT): Improved Continue omeprazole Upcoming EGD Discussed/given handout on diet/lifestyle modifications Atherosclerosis of aorta 02/11/2021 Assessment & Plan (12/31/2023 1:32 PM PRINCIPAL WEB DEVELOPER): Continue statin & 81mg ASA Assessment & Plan (09/24/2023 2:20 PM CDT): Continue statin & 81mg ASA Assessment & Plan (03/19/2023 1:53 PM PRINCIPAL WEB DEVELOPER): Continue statin & 81mg ASA Assessment & Plan (09/15/2022 1:43 PM CDT): Continue Continue statin & 81mg ASA Assessment & Plan (06/26/2022 1:14 PM CDT): Continue statin Assessment & Plan (09/25/2021 1:23 PM CDT): Continue statin Assessment & Plan (08/26/2021 8:55 AM CDT): Recheck lipids, recommend starting statin Assessment & Plan (05/17/2021 2:30 PM CDT): Discussed statin Desires to work on diet LDL 157>116 Assessment & Plan (02/11/2021 10:35 AM PRINCIPAL WEB DEVELOPER): ASVCD 1.7% 10y risk, discussed with patient Hypertension associated with diabetes 07/19/2020 Assessment & Plan (11/24/2024 5:25 PM CDT): Initially uncontrolled and symptomatic (although no severe symptoms) Given 0.1mg clonidine with improvement in blood pressure Recommend resuming hydrochlorothiazide later today as can experience rebound hypertension after clonidine Assessment & Plan (06/30/2024 2:27 PM CDT): Blood pressure controlled Continue hydrochlorothiazide Assessment & Plan (12/31/2023 1:29 PM PRINCIPAL WEB DEVELOPER): Blood pressure controlled Continue hydrochlorothiazide Assessment & Plan (09/24/2023 2:17 PM CDT): Blood pressure controlled Continue hydrochlorothiazide Assessment & Plan (03/19/2023 1:53 PM PRINCIPAL WEB DEVELOPER): Blood pressure controlled Continue hydrochlorothiazide Assessment & Plan (09/15/2022 1:42 PM CDT): Blood pressure at goal Continue hydrochlorothiazide Assessment & Plan (06/26/2022 1:13 PM CDT): Blood pressure at goal Continue hydrochlorothiazide Assessment & Plan (12/26/2021 1:16 PM PRINCIPAL WEB DEVELOPER): Blood pressure at goal, continue current medications Assessment & Plan (09/25/2021 1:28 PM CDT): Blood pressure at goal, continue current medications Assessment & Plan (08/26/2021 8:52 AM CDT): Continue hydrochlorothiazide Assessment & Plan (05/17/2021 2:26 PM CDT): Blood pressure at goal Continue 25mg hydrochlorothiazide Assessment & Plan (04/16/2021 2:31 PM PRINCIPAL WEB DEVELOPER): Lisinopril d/c 2/2 cough Will start hydrochlorothiazide given history of calcium oxalate stones Assessment & Plan (02/11/2021 10:34 AM PRINCIPAL WEB DEVELOPER): Blood pressure at goal, continue current medications Assessment & Plan (08/01/2020 3:26 PM CDT): Blood pressure elevated today, c/w home cuff Given blood pressure elevated above goal today and at home will start medications. Previously on hydrochlorothiazide, but desires trying a different medication Assessment & Plan (07/19/2020 1:29 PM CDT): Currently blood pressure at goal off medications Advised to bring home cuff in to compare to office readings (if persistently above goal at home would consider starting medications, currently still sounds borderline) Discussed lifestyle modification to help bring blood pressure down CAD (coronary artery disease) 07/11/2015 Assessment & Plan (06/30/2024 2:27 PM CDT): Continue statin & 81mg ASA Assessment & Plan (12/31/2023 1:30 PM PRINCIPAL WEB DEVELOPER): LDL <70 Continue statin & 81mg ASA Assessment & Plan (09/24/2023 2:18 PM CDT): LDL <70 Continue statin & 81mg ASA Assessment & Plan (03/19/2023 2:03 PM PRINCIPAL WEB DEVELOPER): Continue statin & 81mg ASA Assessment & Plan (09/15/2022 1:43 PM CDT): Continue Continue statin & 81mg ASA Chest pain 06/26/2015 Assessment & Plan (12/31/2023 1:57 PM PRINCIPAL WEB DEVELOPER): None in last several months, given # for cardiology if recurs Assessment & Plan (06/22/2020 10:34 AM CDT): AFVSS, exam benign EKG: NSR Check labs to risk stratify History of hypertension, but BP within normal limits. Recommend bringing cuff for next visit Resolved Problems Problem Noted Date Diagnosed Date Resolved Date Annual physical exam 12/26/2021 025 Assessment & Plan (09/24/2023 2:17 PM CDT): Reviewed PMH & FH Reviewed medications and supplements HCM: orders placed as needed Assessment & Plan (12/26/2021 1:33 PM PRINCIPAL WEB DEVELOPER): Reviewed PMH & FH PHQ Screening PHQ-2 Total Score (If total score is 3 or more points, staff should administer the PHQ-9): 0 PHQ-9 Total Score: 0 Reviewed medications and supplements HCM: orders placed as needed Moderate episode of recurren t major depressive disorder 06/22/2020 12/26/2021 Assessment & Plan (08/01/2020 3:25 PM CDT): Significantly improved on amitriptyline, continue Assessment & Plan (07/19/2020 1:23 PM CDT): PHQ Screening PHQ-2 Total Score (If total score is 3 or more points, staff should administer the PHQ-9): 2 PHQ-9 Total Score: 15, uncontrolled Denies suicidal ideation Side effects to lexapro will switch to amitriptyline for concurrent insomnia & diffuse body pain Assessment & Plan (06/22/2020 10:33 AM CDT): PHQ Screening PHQ-2 Total Score (If total score is 3 or more points, staff should administer the PHQ-9): 4 PHQ-9 Total Score: 11, uncontrolled Denies suicidal ideation Will start lexapro 10mg Encounters Date Type Department Care Team Description 12/28/2024 Results Follow-Up [facility] Urology [address] [place] [address] 11[address] [place] [address] Fredrick Barragan MD Calculus analysis-stone 12/20/2024 11:40 AM PRINCIPAL WEB DEVELOPER Office Visit [facility]) [facility] Urology [address] [place] [address] 11th [place] [address] Fredrick Barragan MD Nephrolithiasis (Primary Dx) 11/25/2024 9:15 AM CDT Office Visit [facility] Obstetrical Gynecology [address] [place] [phone] Mary Aldana MD Abnormal uterine bleeding (Primary Dx); Uterine leiomyoma, unspecified location; Polyp of corpus uteri 11/25/2024 8:30 AM CDT Ancillary Procedure [facility] Obstetrical Gynecology [address] [place] [phone] Abnormal uterine bleeding (AUB); Left ovarian cyst 11/24/2024 12:45 PM CDT - 11/24/2024 11:59 PM CDT Hospital Encounter [facility] Medical Office Bldg [facility] [address] [place] [address] [address] [place] [address] Screening mammogram, encounter for Discharge Disposition: Discharge to home or self care 11/24/2024 10:45 AM CDT Lab [facility] Office Building [address] [place] [id number] Controlled type 2 diabetes mellitus with complication, without long-term current use of insulin; Annual physical exam; Mixed diabetic hyperlipidemia associated with type 2 diabetes mellitus (HCC); Hypertension associated with diabetes (HCC) 11/24/2024 9:00 AM CDT Office Visit [facility] Primary Care at [address] [place] [address] Radha Peterson MD Hypertension associated with diabetes (HCC) (Primary Dx); Open fracture of left hand with routine healing, subsequent encounter; Controlled type 2 diabetes mellitus with complication, without long-term current use of insulin; Mixed diabetic hyperlipidemia associated with type 2 diabetes mellitus (HCC); Annual physical exam 11/24/2024 Results Follow-Up [facility] Medical [facility] Primary Care [address] [place] [address] [address] [place] [phone] Radha Peterson MD Albumin Creatinine Ratio, Urine, Lipid panel, Thyroid Function [place], Additional followed-up results: 5 11/17/2024 Telephone [facility] Primary Care at [address] [place] [address] Radha Peterson MD 11/14/2024 Telephone [facility] Primary Care at [place] [address] [place] [address] [address] [place] [phone] Radha Peterson MD DM Eye Exam 10/31/2024 Telephone [facility] Obstetrical Gynecology [address] [place] [address] [address] [place] [phone] Mary Aldana MD 10/31/2024 Telephone [facility] Obstetrical Gynecology [address] [place] [address] [address] [place] [phone] Mary Aldana MD 10/29/2024 7:58 PM CDT - 10/29/2024 11:45 PM CDT Emergency [facility] Emergency Department [address] [place] [address] David Lam Jr., MD Nephrolithiasis (Primary Dx); Dehydration Discharge Disposition: Discharge to home or self care 10/20/2024 Orders Only [facility] Medicine [facility] [address] [place] [address] [address] [place] [address] Fredrick Barragan MD 10/20/2024 Telephone [facility] Medicine [facility] Urology [address] [facility] 11th [place] [address] [place] [address] Kimberlee Kendrick 10/19/2024 Results Follow-Up [facility] Obstetrical Gynecology [address] [facility] [address] [place] [address] Mary Aldana MD Urine culture Urine, bladder 10/17/2024 5:28 PM CDT - 10/17/2024 11:59 PM CDT Hospital Encounter [facility] Lab [address] [place] [address] Dysuria Discharge Disposition: Discharge to home or self care 10/17/2024 2:00 PM CDT Clinical Support [facility] Obstetrical Gynecology [address] [facility] [address] [place] [address] Dysuria (Primary Dx) 10/17/2024 Telephone [facility] Obstetrical Gynecology [address] [facility] [address] [place] [address] Mary Aldana MD 10/13/2024 1:45 PM CDT Office Visit [facility] Obstetrical Gynecology [address] [facility] [address] [place] [phone] Mary Aldana MD Abnormal uterine bleeding (Primary Dx); Uterine leiomyoma, unspecified location; Left ovarian cyst 10/13/2024 Orders Only [facility] Obstetrical Gynecology [address] [facility] [address] [place] [address] Mary Aldana MD Abnormal uterine bleeding (AUB) (Primary Dx); Left ovarian cyst 10/13/2024 Telephone [facility] Obstetrical Gynecology [address] [facility] [address] [place] [phone] Mary Aldana MD from Last 3 Months Immunizations Immunization Administration Dates Next Due Influenza, Unspecified 11/19/2023(Deferred: Tory ent Refused) Meningococcal B, unspecified 06/30/2024(Deferred : Patient Refused) Pfizer SARS-CoV-2 Monovalent Vaccination (12+ Yrs) PURPLE 06/25/2020,06/04/2020 Pneumococcal Conjugate Pcv20 06/30/2024(Deferred : Patient Refused) Tdap 11/05/2024,12/07/2019 ZOSTER Recombinant 06/30/2024(Deferred: Patient Refused) Surgical History Surgery Date Site/Laterality Comments ABDOMINAL SURGERY TUMMY TUCK BREAST SURGERY BREAST IMPLANTS VAGINAL DELIVERY X3 ABDOMINAL SURGERY Tummy tuck and lipo Medical History Medical History Date Comments None to low serum cortisol r esponse with adrenocorticotrophic hormone (ACTH) stimulation test Depression Hypertension Hyperlipidemia Chest pain in 2020, lugo d holter monitor and stress test in 2021. Pt denies any chest pain recently HLD (hyperlipidemia) per EMR Kidney stone current-bilat. History of kidney stones multipl e episodes Umbilical hernia per EMR tiny f at containing Diverticulosis per EMR Last menstrual period (LMP) < 10 days ago GERD (gastroesophageal reflux disease) Family History Medical History Relation Name Comments Heart attack Father Avel bonilla Diabetes Mother Jodee bonilla Breast cancer Neg Hx Ovarian cancer Neg Hx Uterine cancer Neg Hx Relation Name Status Comments Father Avel bonilla (Age 60) Mother Jodee bonilla Alive Social History Tobacco Use Types Packs/Day Years Used Date Smoking Tobacco: Former Cigarettes Smokeless Tobacco: Never Tobacco Cessation:Counseling Given: Not Answered Alcohol Use Standard Drinks/Week Comments Yes 0 (1 standard drink = 0.6 oz pur e alcohol) PHQ-2 Answer Date Recorded PHQ-2 Total Score (If total score is 3 or more points, staff should administer the PHQ-9) 0 11/24/2024 PHQ-9 Answer Date Recorded PHQ-9 Total Score 7 09/24/2023 AUDIT-C Answer Date Recorded Q1: How often do you have a drink containing alc ohol? Monthly or less 11/24/2024 Q2: How many drinks containi ng alcohol do you have on a typical day when you are drinking? 1 or 2 11/24/2024 Q3: How often do you have si x or more drinks on one occasion? Never 11/24/2024 Personal Safety Answer Date Recorded Have you ever been in or are you currently in a harmful physical or emotional relationship or is someone making you feel afraid or unsafe? Denies 10/29/2024 Comments No Sex and Gender Information Value Date Recorded Sex Assigned at Not on file Legal Sex Female 8:56 PM PRINCIPAL WEB DEVELOPER Gender Identity Not on file Sexual Orientation Not on file Obstetrics History Para Term AB IAB SAB Ectopic Multiple Livin g Live Births 6 3 3 2 1 3 3 Date Outcome GA Total Labor Labor/2nd/3rd Weight Sex Type Anes PTL Serena A1 A5 Name Clin Term Vag-S pont Living Term Vag-S pont Living Term Vag-S pont Living SAB AB Last Filed Vital Signs Vital Sign Reading Time Taken Comments Blood Pressure 128/82 11/25/2024 9:06 AM CDT Pulse 82 11/24/2024 8:51 AM CDT Temperature 36.5 C (97.7 F) 11/24/2024 8:51 AM CDT Respiratory Rate 14 10/29/2024 11:0 0 PM CDT Oxygen Saturation 97% 11/24/2024 8:51 AM CDT Inhaled Oxygen Concentration - - Weight 72.5 kg (159 lb 12.8 oz) 11/25/2024 9:06 AM CDT Height 157.5 cm (5' 2) 11/25/2024 9:06 AM CDT Body Mass Index 29.23 11/25/2024 9:06 AM CDT Plan of Treatment Health Maintenance Due Date Last Done Comments Foot Exam 1971 Pneumococcal vaccine <65 (1 of 2 - PCV) 12/10/1990 Zoster Vaccine (1 of 2) 12/10/2021 Cervical Cancer Screening 08/10/2024 08/11/2023, 03/2023 Regular Well Visit/Exam 18-64 09/23/2024, 08/11/2023, 05/30/2022, Additional history exists Covid-19 Vaccine ( - 2024-2 6 season) 2024 06/25/2020, 06/04/2020 Influenza Vaccine (#1) 2024 Dilated Eye Exam 02/22/2025 02/23/2024, 02/23/2024 Hemoglobin A1C 05/25/2025 11/24/2024, 05/03/2024, 12/31/2023, Additional history exists Albumin Creatinine Ratio, Urine 11/24/2025 , 01/25/2024 Breast Cancer Screening-Mammogram 11/24/2025 11/24/2024, 10/21/2023, 08/15/2022, Additional history exists Depression Screening 11/24/2025 11/24/2024, 09/24/2023, 09/24/2023, Additional history exists Lipid Panel 11/24/2025 11/24/2024, 06/10, 01/25/2024, Additional history exists eGFR 11/24/2025 11/24/2024, 10/11, 10/29/2024, Additional history exists Colon Cancer Screening-Colonoscopy 08/29/20262021 DTaP/Tdap/Td Vaccine (3 - Td or Tdap) 11/05/2034 11/05/2024, 12/07/2019 Hepatitis C Screening Completed 05/11/2023 Hepatitis B Screening Completed 01/25/2024 Medical Devices Implanted Type Area Foundation Engineer Device Identifier Shelf Expiration Date Model / Serial / Lot [employer] [id number] Set Stent 26cm 5fr Universa 2 Pigtail Curve Ureter Hdrph - [id number] Implanted:Qty : 1 on 06/07/2021 by Leena Pena MD at [facility] Explanted:11/2021 by Leena Pena MD (Quantity not on file) Left: Ureter [employer] [id number] 03/12/2024 [id number] / / [id number] Explanted Type Area Foundation Engineer Device Identifier Shelf Expiration Date Model / Serial / Lot [employer] Inlay [place] 6fr 24cm Pusher Fluoro Marker Atraumatic Insertion Latex Free [id number] - [id number] Implanted:Qty: 1 on 09/11/2021 by Leena Pena MD at [facility] Explanted:Qty: 1 on 10/03/2021 by Leena Pena MD Stent [employer] [id number] 08/07/2025 [id number] / / [id number] [employer] [id number] Set Stent 24cm 5fr Universa 2 Pigtail Curve Ureter Aq Radopq - [id number] Explanted:Qty: 1 on 06/07/2021 by Leena Pena MD at [facility] Left: Ureter [employer] [id number] 03/18/2024 [id number] / / [id number] Procedures Procedure Name Priority Date/Time Associated Diagnosis Comments CALCULUS ANALYSIS-STONE Routine 12/27/2024 12:00 AM PRINCIPAL WEB DEVELOPER US PELVIS W ENDOVAGINAL Schedule Routine, Read Routine (OP Routine) 11/25/2024 8:19 AM CDT Abnormal uterine bleeding (AUB) Left ovarian cyst SCREENING MAMMOGRAM BILATERAL W BOBBY W IMPLANTS Schedule Routine, Read Routine (OP Routine) 11/24/2024 1:08 PM CDT Screening mammogram, encounter for EGFR Routine 11/24/2024 11:02 AM CDT Hypertension associated with diabetes (HCC) Controlled type 2 diabetes mellitus with complication, without long-term current use of insulin Annual physical exam Mixed diabetic hyperlipidemia associated with type 2 diabetes mellitus (HCC) DIFFERENTIAL AUTO Routine 11/24/2024 11:02 AM CDT Controlled type 2 diabetes mellitus with complication, without long-term current use of insulin Annual physical exam HEMOGLOBIN A1C Routine 11/24/2024 11:02 AM CDT Controlled type 2 diabetes mellitus with complication, without long-term current use of insulin Annual physical exam CBC WITH AUTO DIFFERENTIAL Routine 11/24/2024 11:02 AM CDT Controlled type 2 diabetes mellitus with complication, without long-term current use of insulin Annual physical exam COMPREHENSIVE METABOLIC PANEL Routine 11/24/2024 11:02 AM CDT Hypertension associated with diabetes (HCC) Controlled type 2 diabetes mellitus with complication, without long-term current use of insulin Annual physical exam Mixed diabetic hyperlipidemia associated with type 2 diabetes mellitus (HCC) THYROID FUNCTION CASCADE Routine 11/24/2024 11:02 AM CDT Controlled type 2 diabetes mellitus with complication, without long-term current use of insulin Annual physical exam LIPID PANEL Routine 11/24/2024 11:02 AM CDT Controlled type 2 diabetes mellitus with complication, without long-term current use of insulin Annual physical exam Mixed diabetic hyperlipidemia associated with type 2 diabetes mellitus (HCC) ALBUMIN CREATININE RATIO, URINE Routine 11/24/2024 11:02 AM CDT Controlled type 2 diabetes mellitus with complication, without long-term current use of insulin LITHOLINK 24HR URINE PANEL Routine 11/15/2024 12:10 AM CDT Nephrolithiasis EGFR Timed 10/29/2024 10:34 PM CDT SEPSIS LACTATE WITH REFLEX Timed 10/29/2024 10:34 PM CDT BASIC METABOLIC PANEL Timed 10/29/2024 10:[address] ABDOMEN PELVIS WO CONTRAST ED 10/29/2024 8:49 PM CDT POCT HCG, URINE Routine 10/29/2024 7:58 PM CDT URINALYSIS, MICROSCOPIC ONLY STAT 10/29/2024 7:57 PM CDT URINALYSIS AND REFLEX TO MICROSCOPIC AND CULTURE STAT 10/29/2024 7:57 PM CDT EGFR STAT 10/29/2024 7:50 PM CDT DIFFERENTIAL AUTO STAT 10/29/2024 7:5 0 PM CDT LACTATE STAT 10/29/2024 7:50 PM CDT LIPASE STAT 10/29/2024 7:50 PM CDT CBC WITH AUTO DIFFERENTIAL STAT 10/29/2024 7:50 PM CDT COMPREHENSIVE METABOLIC PANEL STAT 10/29/2024 7:50 PM CDT URINE CULTURE Routine 10/17/2024 1:57 PM CDT Dysuria POCT URINALYSIS DIPSTICK Routine 10/17/2024 1:56 PM CDT Dysuria HM DIABETES EYE EXAM Routine 02/23/2024 HIGH RISK HPV DNA DETECTION WITH GENOTYPING Routine 08/11/2023 2:21 PM CDT Well woman exam HEPATITIS C ANTIBODY Routine 05/11/2023 2:24 PM CDT Pre-op testing HM COLONOSCOPY Routine 08/29/2021 from Last 3 Months or Most Recently Relevant to Health Maintenance Results * Calculus analysis-stone (12/27/2024 12:00 AM PRINCIPAL WEB DEVELOPER) Stone Analysis Comment [facility] - 01 Comment: REPORT STATUS: FINAL RESULTS: SPECIMEN SOURCE-A: URINARY CALCULUS Stone, Unspecified DIAGNOSIS-A: THE CALCULUS IS COMPOSED OF A MIXTURE OF CALCIUM OXALATE MONOHYDRATE (WHEWELLITE), CALCIUM OXALATE DIHYDRATE (WEDDELITE) AND CALCIUM PHOSPHATE CARBONATE (CARBONATE-APATITE). STONE COMPOSITION: SPECIMEN: 1 Stone Composition: Calcium Oxalate Monohydrate Composition%: Body%: 52 Stone Composition: Calcium Oxalate Dihydrate Composition%: Body%: 40 Stone Composition: Calcium Phosphate Carbonate Composition%: Body%: 8 TOTAL Body%: 100 GROSS DESCRIPTION-A: The stone is 4.8 x 3.2 x 2.0 mm in size. It is brown and cream in color and weighs approximately 10 milligrams. CPT CODES:A: 83009 CASE COMMENT: Requisition received without date of collection. DIAGNOSIS ICD CODE(S): Clinician Provided ICD10: N20.0: CALCULUS OF KIDNEY PERFORMING LABS: [facility] [address] [place] [address], [id number] Fight Manager: Mil Orellana M.D. [facility] is a subsidiary of [employer], using the brand [facility]. 12/27/2024 12/27/2024 7:0 4 AM PRINCIPAL WEB DEVELOPER Narrative [facility] - 12/28/2024 10:18 AM PRINCIPAL WEB DEVELOPER Performed at: 01 - [facility]. [address] [place] [id number] [employer] Plant Laborer: MIL ORELLANA DR, Phone: [phone] us Fredrick Barragan MD LAB PATHOLOGY ORDERABLES Final R esult [facility] - 01 * US Pelvis W Endovaginal (11/25/2024 8:19 AM CDT) Endometrial Thickness 6.1 mm&millime ters VIEWPOINT Anatomical Region Laterality Modality Pelvis N/A Ultrasound 11/25/2024 8:24 AM CDT Impressions 11/27/2024 4:55 PM CDT Normal sized uterus with at least two myomas. Neither fibroid appears to interfere with the endometrium. Echogenic defect within the endometrium most consistent with endometrial polyp. Normal appearing left ovary. Normal appearing right ovary with a small follicle noted. Narrative Procedure Note Mary Aldana MD - 11/27/2024 IMPRESSION: Normal sized uterus with at least two myomas. Neither fibroid appears tointerfere with the endometrium. Echogenic defect within the endometriummost consistent with endometrial polyp. Normal appearing left ovary. Normal appearing right ovary with a small follicle noted. us Mary Aldana MD IMG US PROCEDURES Final Re sult * Screening Mammogram Bilateral W Bobby W Implants (11/24/2024 1:08 PM CDT) Anatomical Region Laterality Modality Breast Bilateral Mammography Impressions 11/24/2024 1:49 PM CDT BI-RADS ATLAS category (overall): 2 - Benign There is no mammographic evidence of malignancy. A 1 year screening mammogram is recommended. The patient has been or will be contacted. We recommend annual screening mammography for women at average risk of breast cancer beginning at age 40, based on guidelines of the [place] [employer] (ACR Practice Parameter for the Performance of Screening and Diagnostic Mammography) and [place] [employer]. For women with and elevated risk of breast cancer, please refer to the ACR Practice Parameter for specific screening recommendations. The patient will be entered into a reminder system with a target due date of 1 year for her next screening exam. Narrative 11/24/2024 1:49 PM CDT Screening Mammogram Bilateral W Bobby W Implants: 11/24/24 The study was acquired using full field digital technology and interpreted from soft copy. 2D digital mammographic views, as well as 3D digital tomosynthesis were performed in the CC and MLO projections. CLINICAL: Screening mammogram, encounter for. No relevant medical history has been documented for this patient. History of breast cancer in Neg Hx. No comparisons were made when reading this study. BREAST TISSUE: The breasts are heterogeneously dense, which may obscure small masses. FINDINGS: Bilateral subpectoral silicone breast implants are again noted. The presence of implants limits the sensitivity of mammography. There is a fat density mass in the posterior upper outer left breast, consistent with benign oil cyst/fat necrosis. Otherwise, there is no new suspicious finding in either breast on mammogram. us Self Screening Mammogram IMG MAMMO PROCEDURES Fi nal Result * eGFR (11/24/2024 11:02 AM CDT) eGFR >90 >=60 mL/min/1. 73 m2 Comment: Interpretive Data Reference Interval Normal >/= 90 mL/min/1.73m2 Mildly decreased* 60 - 89 mL/min/1.73m2 Mildly to moderately decreased 45 - 59 mL/min/1.73m2 Moderately to severely decreased 30 - 44 mL/min/1.73m2 Severely decreased 15 - 29 mL/min/1.73m2 Kidney Failure < 15 mL/min/1.73m2 *Relative to young adult level Estimated glomerular filtration rate is determined by the 2020 CKD-EPI equation recommended by the National Kidney Foundation (A Unifying Approach to GFR Estimation: Recommendations of the NKF-ASK Task Force on Reassessing the Inclusion of Race in Diagnosing Kidney Disease, JASN 2020). The CKD-EPI equation should not be used for patients with unstable renal function and has not been validated in children and those over 70. Current interpretive data was last reviewed 2020. Testing performed by: [address] [address] Blood 11/24/2024 11:0 2 AM CDT 11/24/2024 11:45 AM CDT us Radha Peterson MD LAB BLOOD ORDERAB LES Final Result [facility] [address] [facility] Department [place] [address] * Differential, auto (11/24/2024 11:02 AM CDT) Neutrophil abs 3.69 1.50 - 6.50 K/cumm Comment:Testing performed by : [address] [address] Imm gran abs 0.03 0.00 - 0.10 K/cumm KAYLA Comment:Testing performed by : [address] [address] Lymphocyte abs 2.14 0.80 - 3.30 K/cumm KAYLA Comment:Testing performed by : [address] [address] Monocyte abs 0.62 0.20 - 0.80 K/cumm KAYLA Comment:Testing performed by : [address] [address] Eosinophil abs 0.09 0.00 - 0.50 K/cumm KAYLA Comment:Testing performed by : [address] [address] Basophil abs 0.03 0.00 - 0.10 K/cumm KAYLA Comment:Testing performed by : [address] [address] Neutrophil pct 55.8 % KAYLA Comment: Interpretive Data Percent cell count reference ranges are not reported, since discordance with absolute values may lead to misinterpretation of CBC data. Current Interpretive Data was last revised on 2017. Testing performed by: [address] [address] Imm gran pct 0.5 % [facility] Comment: Interpretive Data Percent cell count reference ranges are not reported, since discordance with absolute values may lead to misinterpretation of CBC data. Current Interpretive Data was last revised on 2017. Testing performed by: [address] [address] Lymphocyte pct 32.4 % [facility] Comment: Interpretive Data Percent cell count reference ranges are not reported, since discordance with absolute values may lead to misinterpretation of CBC data. Current Interpretive Data was last revised on 2017. Testing performed by: [address] [address] Monocyte pct 9.4 % [facility] Comment: Interpretive Data Percent cell count reference ranges are not reported, since discordance with absolute values may lead to misinterpretation of CBC data. Current Interpretive Data was last revised on 2017. Testing performed by: [address] [address] Eosinophil pct 1.4 % K[facility]LA Comment: Interpretive Data Percent cell count reference ranges are not reported, since discordance with absolute values may lead to misinterpretation of CBC data. Current Interpretive Data was last revised on 2017. Testing performed by: [address] [address] Basophil pct 0.5 % [facility] Comment: Interpretive Data Percent cell count reference ranges are not reported, since discordance with absolute values may lead to misinterpretation of CBC data. Current Interpretive Data was last revised on 2017. Testing performed by: [address] [address] Blood 11/24/2024 11:0 2 AM CDT 11/24/2024 11:45 AM CDT us Radha Peterson MD LAB BLOOD ORDERAB LES Final Result [facility] [address] [facility] Department [place] [address] * Thyroid Function [place] (11/24/2024 11:02 AM CDT) Pathologist [facility] TSH 3.39 0.30 - 4.20 mcIUnit/mL Comment:Testing performed by : [address] [address] Blood 11/24/2024 11:0 2 AM CDT 11/24/2024 11:45 AM CDT us Radha Peterson MD LAB BLOOD ORDERAB LES Final Result [facility] [address] [facility] Department [place] [address] * (ABNORMAL) CBC with auto differential (11/24/2024 11:02 AM CDT) Pathologist [facility] WBC 6.60 3.80 - 9.90 K/cumm Comment:Testing performed by : [address] [address] Hgb 13.8 11.9 - 15.5 g/dL KAYLA Comment:Testing performed by : [address] [address] Hct 42.1 35.6 - 45.5 % KAYLA Comment:Testing performed by : [address] [address] Plt 188 150 - 400 K/cumm KAYLA Comment:Testing performed by : [address] [address] MPV 13.6(H) 9.1 - 12.3 fL KAYLA Comment:Testing performed by : [address] [address] RBC 4.53 3.90 - 5.20 M/cumm KAYLA Comment:Testing performed by : [address] [address] MCV 92.9 81.3 - 96.4 fL KAYLA Comment:Testing performed by : [address] [address] MCH 30.5 27.1 - 33.3 pg KAYLA JALLOH Comment:Testing performed by : [facility], [address] [place] [address]., [address] MCHC 32.8 32.3 - 35.7 g/dL KAYLA JALLOH Comment:Testing performed by : [facility], [address] [place] [address]., [address] RDW CV 13.1 11.1 - 14.9 % KAYLA JALLOH Comment:Testing performed by : [address] [address] RDW SD 44.3 35.7 - 48.1 fL KAYLA JALLOH Comment:Testing performed by : [address] [address] NRBC abs 0.00 0.00 - 0.01 K/cumm KAYLA JALLOH Comment:Testing performed by : [address] [address] Blood 11/24/2024 11:0 2 AM CDT 11/24/2024 11:45 AM CDT us Radha Peterson MD LAB BLOOD ORDERAB LES Final Result [facility] [address] [facility] Department [place] [address] * Albumin Creatinine Ratio, Urine (11/24/2024 11:02 AM CDT) Albumin Ur <12.0 mg/L Comment: Interpretive Data No reference range established. Current interpretive data was last revised 2018. Testing performed by: [address] [address] Creatinine Ur 88.8 mg/dL KAYLA JALLOH Comment: Interpretive Data No reference range established. Current interpretive data was last revised 2018. Testing performed by: [address] [address] Albumin Creatinine Ratio, Ur <14 1 - 29 mg/g KAYLA JALLOH Comment:Testing performed by : [address] [address] Urine 11/24/2024 11:0 2 AM CDT 11/24/2024 11:42 AM CDT Radha Peterson MD LAB URINE ORDERAB LES Final Result Performing Organization Address [facility] Co de Phone Number KAYLA [facility] [place] [address] * (ABNORMAL) Hemoglobin A1c (11/24/2024 11:02 AM CDT) Hgb A1C 7.0(H) 4.0 - 5.6 % Comment:Testing performed by : [facility], [address] [place] [address]., [address] Estimated Average Glucose 154 mg/dL KAYLA Comment: The ADA recommends reporting an estimated Average Glucose (eAG) with all Hemoglobin A1c results using the equation derived from a study of 507 normal and diabetic adults. Minority populations were underrepresented and children were not included. (Diabetes Care 31:1054-0804, 2008). The eAG is not equivalent to a fasting glucose. Testing performed by: [facility], [address] [place] [address]., [address] Blood 11/24/2024 11:0 2 AM CDT 11/24/2024 11:45 AM CDT Radha Peterson MD LAB BLOOD ORDERAB LES Final Result Performing Organization Address City/[facility] Co de Phone Number KAYLA [address] [place] [address] * (ABNORMAL) Lipid panel (11/24/2024 11:02 AM CDT) Cholesterol 174 30 - 199 mg/dL Comment: Interpretive Data Ages < or = 19 years Acceptable: <170 mg/dL Borderline high: 170-199 mg/dL High: >or= 200 mg/dL Ages > or = 20 years Desirable: <200 mg/dL Borderline high: 200-239 mg/dL High: >or= 240 mg/dL Literature References: 1. Expert Panel on Integrated Guidelines for Cardiovascular Health and Risk Reduction in Children and Adolescents. Pediatrics 2011;128:S213 2. NCEP Expert Panel. Circulation 2004;110:227 Current Interpretive Data was last revised on 2017. Testing performed by: [address] [address] Triglycerides 241(H) <=149 mg/dL KAYLA Comment: Interpretive Data Ages < or = 9 years Acceptable: <75 mg/dL Borderline high: 75-99 mg/dL High: >or= 100 mg/dL Ages 10 to 20 years Acceptable: <90 mg/dL Borderline high: 90-129 mg/dL High: >or= 130 mg/dL Ages > or = 20 years Desirable: <150 mg/dL Borderline high: 150-199 mg/dL High: 200-499 mg/dL Very high: >or= 499 mg/dL Literature References: 1. Expert Panel on Integrated Guidelines for Cardiovascular Health and Risk Reduction in Children and Adolescents. Pediatrics 2011;128:S213 2. NCEP Expert Panel. Circulation 2004;110:227 Current Interpretive Data was last revised on 2017. Testing performed by: [address] [address] HDL 37(L) >=40 mg/dL KAYLA Comment: Interpretive Data Ages < or = 19 years Acceptable: >45 mg/dL Borderline low: 40-45 mg/dL Low: <40 mg/dL Ages > or = 20 years Desirable: >or= 60 mg/dL Low: <40 mg/dL Literature References: 1. Expert Panel on Integrated Guidelines for Cardiovascular Health and Risk Reduction in Children and Adolescents. Pediatrics 2011;128:S213 2. NCEP Expert Panel. Circulation 2004;110:227 Current Interpretive Data was last revised on 2017. Testing performed by: [address] [address] LDL, calculated 96 <=129 mg/dL KAYLA Comment: Interpretive Data Ages < or = 19 years Acceptable: <110 mg/dL Borderline high: 110-129 mg/dL High: >or= 130 mg/dL Ages > or = 20 years Optimal: <100 mg/dL Near optimal: 100-129 mg/dL Borderline high: 130-159 mg/dL High: >160 mg/dL Calculated using the Hahn LDL-C estimating equation. This equation was implemented on 2023. Prior to this date LDL-C was estimated using the Friedewald equation. Literature References: 1. Expert Panel on Integrated Guidelines for Cardiovascular Health and Risk Reduction in Children and Adolescents. Pediatrics 2011;128:S213 2. NCEP Expert Panel. Circulation 2004;110:227 3. Joavni Willis et al. [place] Cardiol. 2019June 09;5(5):540-548. doi: 10.1001/[email or web address].2020.0013 Current Interpretive Data was last revised on 2023. Testing performed by: [address] [address] Non-HDL Cholesterol 137 mg/dL KAYLA JALLOH Comment: Interpretive Data Ages < or = 19 years Acceptable: <120 mg/dL Borderline high: 120-144 mg/dL High: >145 mg/dL Ages > or = 20 years When triglycerides are >200 mg/dL, Non-HDL cholesterol is a secondary target of therapy with treatment goals that are 30 mg/dL greater than the LDL cholesterol target. Literature References: 1. Expert Panel on Integrated Guidelines for Cardiovascular Health and Risk Reduction in Children and Adolescents. Pediatrics 2011;128:S213 2. NCEP Expert Panel. Circulation 2004;110:227 Current Interpretive Data was last revised on 2017. Testing performed by: [address] [address] Chol/HDL ratio 5 KAYLA JALLOH Comment:Testing performed by : [address] [address] Blood 11/24/2024 11:0 2 AM CDT 11/24/2024 11:45 AM CDT us Radha Peterson MD LAB BLOOD ORDERAB LES Final Result [facility] JALLOH [address] [facility] Department [place] [address] * (ABNORMAL) Comprehensive metabolic panel (11/24/2024 11:02 AM CDT) [facility] Signature Sodium 134(L) 135 - 145 mmol/L Comment:Testing performed by : [address] [address] Potassium, pl 4.2 3.3 - 4.9 mmol/L [facility] Comment:Testing performed by : [address], [place]., [address] Chloride 99 97 - 110 mmol/L [facility] Comment:Testing performed by : [address], [place]., [address] CO2 25 22 - 32 mmol/L [facility] Comment:Testing performed by : [address], [place]., [address] Anion gap 10 2 - 15 mmol/L [facility] Comment:Testing performed by : [address], [place]., [address] BUN 13 6 - 25 mg/dL [facility] Comment:Testing performed by : [address], [place]., [address] Creatinine 0.65 0.60 - 1.10 mg/dL [facility] Comment:Testing performed by : [address], [place]., [address] Glucose 141 70 - 199 mg/dL [facility] Comment: Interpretive Data Fasting glucose >/= 126 mg/dl is diagnostic for diabetes. Fasting is defined as no caloric intake for at least 8 hours. Fasting glucose between 100 mg/dl to 125 mg/dl is diagnostic of prediabetes. In a patient with classic symptoms of hyperglycemia or hyperglycemic crisis, a random glucose >/= 200 mg/dl is diagnostic for diabetes. In the absence of unequivocal hyperglycemia, results should be confirmed by repeat testing. The classification and Diagnosis of Diabetes Diabetes Care 202; 46: S19-S40. Current interpretive data was last revised 2022. Testing performed by: [address] [address] Calcium 9.3 8.5 - 10.3 mg/dL [facility] Comment:Testing performed by : [address], [place]., [address] Bilirubin, total 0.3 0.1 - 1.2 mg/dL [facility] Comment:Testing performed by : [address], [place]., [address] Protein, pl 6.7 6.5 - 8.5 g/dL KAYLA Comment:Testing performed by : [address] [address] Albumin 4.1 3.5 - 5.0 g/dL KAYLA Comment:Testing performed by : [address] [address] Alk phos 61 40 - 130 Units/L KAYLA Comment:Testing performed by : [address] [address] ALT 27 7 - 45 Units/L KAYLA Comment:Testing performed by : [address] [address] AST 19 10 - 45 Units/L K[facility]LA Comment:Testing performed by : [address] [address] Blood 11/24/2024 11:0 2 AM CDT 11/24/2024 11:45 AM CDT us Radha Peterson MD LAB BLOOD ORDERAB LES Final Result [facility] [address] [facility] Department of Laboratories [place], [place] [id number] * (ABNORMAL) [employer] 24Hr Urine Panel (11/15/2024 12:10 AM CDT) Cystine, Urine, Qualitative CANCELED [facility] - 01 Comment: Test not performed. Previous test results on file. Result canceled by the ancillary. Urine Volume (Preserved) 2,070 500 - 4,000 mL/24 hr [facility] - 01 Calcium Oxalate Saturation 5.52(L) 6.00 - 10.00 [facility] - 01 Calcium, Urine 222(H) <200 mg/24 hr [facility] - 01 Oxalate, Urine 33 20 - 40 mg/24 hr [facility] - 01 Citrate, Urine 715 >550 mg/24 hr [facility] - 01 Comment:The urine Cit result was verified by repeat analysis. Calcium Phosphate Saturation 1.83 0.50 - 2.00 [facility] - 01 pH, 24 hr, Urine 6.831(H) 5.800 - 6.200 [facility] - 01 Uric Acid Saturation 0.11 <1.00 [facility] - 01 Uric Acid, Urine 624 <750 mg/24 hr [facility] - 01 Sodium, Urine 167(H) 50 - 150 mmol/24 hr [facility] - 01 Potassium, Urine 81 20 - 100 mmol/24 hr [facility] - 01 Magnesium, Urine 95 30 - 120 mg/24 hr [facility] - 01 Phosphorus, Urine 681 600 - 1,200 mg/24 hr [facility] - 01 Ammonium, Urine 30 15 - 60 mmol/24 hr [facility] - 01 Chloride, Urine 185 70 - 250 mmol/24 hr [facility] - 01 Sulfate, Urine 28 20 - 80 meq/24 hr [facility] - 01 Urea Nitrogen, Urine 8.99 6.00 - 14.00 g/24 hr [facility] - 01 Protein Catabolic Rate 1.2 0.8 - 1.4 g/kg/24 hr [facility] - 01 Creatinine, Urine 1,348 Not Applic. mg/24 hr [facility] - 01 Creatinine/Kg Body Weight 23.2(H) 8.7 - 20.3 mg/24 hr/kg [facility] - 01 Calcium/Kg Body Weight 3.8 <4.0 mg/24 hr/kg [facility] - 01 Calcium/Creatini ne Ratio 164 51 - 262 mg/g creat [facility] - 01 Comment Note [facility] - 01 Urine 11/15/2024 12:1 0 AM CDT 11/16/2024 Narrative [facility] - 11/19/2024 6:09 AM CDT Test(s) 777775-Fvtosds, Urine, Qualitative; 349051-Wugvmef, Urine; 534479-gC, 24 hr, Urine; 736043-Nnmfxfxg, Urine; 005943- Sulfate, Urine was developed and its performance characteristics determined by [facility]. It has not been cleared or approved by the Food and Drug Administration. Performed at: 01 - [facility] [id number] [employer] Laborer: Cayla Brooks PhD, Phone: [phone] Fredrick Barragan MD LAB URINE ORDERABLES Edited Resu lt - Final [facility] - 01 * (ABNORMAL) Sepsis Lactate w/ Reflex (10/29/2024 10:34 PM CDT) Pathologist [facility] Sepsis Lactate 2.1(H) 0.7 - 2.0 mmol/L Comment:Testing performed by : [address] [address] Blood 10/29/2024 10:3 4 PM CDT 10/29/2024 10:36 PM CDT David Lam Jr., MD LAB BLOOD ORDERABLES F inal Result KAYLA [facility] Department [place] [address] * eGFR (10/29/2024 10:34 PM CDT) Pathologist [facility] eGFR 80 >=60 mL/min/1. 73 m2 Comment: Interpretive Data Reference Interval Normal >/= 90 mL/min/1.73m2 Mildly decreased* 60 - 89 mL/min/1.73m2 Mildly to moderately decreased 45 - 59 mL/min/1.73m2 Moderately to severely decreased 30 - 44 mL/min/1.73m2 Severely decreased 15 - 29 mL/min/1.73m2 Kidney Failure < 15 mL/min/1.73m2 *Relative to young adult level Estimated glomerular filtration rate is determined by the 2020 CKD-EPI equation recommended by the National Kidney Foundation (A Unifying Approach to GFR Estimation: Recommendations of the NKF-ASK Task Force on Reassessing the Inclusion of Race in Diagnosing Kidney Disease, JASN 2020). The CKD-EPI equation should not be used for patients with unstable renal function and has not been validated in children and those over 70. Current interpretive data was last reviewed 2020. Testing performed by: [address] [address] Blood 10/29/2024 10:3 4 PM CDT 10/29/2024 10:36 PM CDT us David Lam Jr., MD LAB BLOOD ORDERABLES F inal Result [facility] [address] [facility] Department [place] [address] * (ABNORMAL) Basic metabolic panel (10/29/2024 10:34 PM CDT) Sodium 142 135 - 145 mmol/L Comment:Testing performed by : [address] [address] Potassium, pl 3.9 3.3 - 4.9 mmol/L [facility] Comment:Testing performed by : [address] [address] Chloride 107 97 - 110 mmol/L [facility] Comment:Testing performed by : [address] [address] CO2 23 22 - 32 mmol/L [facility] Comment:Testing performed by : [address] [address] Anion gap 12 2 - 15 mmol/L [facility] Comment:Testing performed by : [address] [address] BUN 14 6 - 25 mg/dL [facility] Comment:Testing performed by : [address] [address] Creatinine 0.87 0.60 - 1.10 mg/dL [facility]LA Comment:Testing performed by : [address] [address] Glucose 113 70 - 199 mg/dL [facility] Comment: Interpretive Data Fasting glucose >/= 126 mg/dl is diagnostic for diabetes. Fasting is defined as no caloric intake for at least 8 hours. Fasting glucose between 100 mg/dl to 125 mg/dl is diagnostic of prediabetes. In a patient with classic symptoms of hyperglycemia or hyperglycemic crisis, a random glucose >/= 200 mg/dl is diagnostic for diabetes. In the absence of unequivocal hyperglycemia, results should be confirmed by repeat testing. The classification and Diagnosis of Diabetes Diabetes Care 202; 46: S19-S40. Current interpretive data was last revised 2022. Testing performed by: [facility], [address] [place] [address]., [address] Calcium 8.4(L) 8.5 - 10.3 mg/dL ASHISHSD YEIMI Comment:Testing performed by : [facility], [address] [place] [address]., [address] Blood 10/29/2024 10:3 4 PM CDT 10/29/2024 10:36 PM CDT us David Lam Jr., MD LAB BLOOD ORDERABLES F inal Result [facility]SHISH[facility] YEIMI [address] [facility] Department [place] [address] * CT Abdomen Pelvis WO Contrast (10/29/2024 8:49 PM CDT) Anatomical Region Laterality Modality Body N/A Computed Tomogra phy 10/29/2024 9:05 PM CDT Narrative 10/29/2024 9:12 PM CDT EXAM DESCRIPTION: CT ABDOMEN PELVIS WO CONTRAST REASON FOR STUDY: History of kidney stones, suprapubic pain consistent with prior kidney stone pain with hematuria, Pt reports 2 hours prior to arrival pt started having fever/chills, lower abd pain. Pt reports hx of kidney stones. Pt took 2 norco and ibuprofen prior to arrival. TECHNIQUE: CT scan of the abdomen and pelvis performed without intravenous and without oral contrast using helical scanning technique. Reconstructed coronal and sagittal MPR images reviewed. All images stored on PACS. Automated exposure control was used as a dose optimization technique for this examination. COMPARISON: 09/12/2024 FINDINGS: The sensitivity for detection of visceral lesions is diminished without the use of intravenous contrast. LOWER CHEST: No significant pulmonary abnormalities. No effusion. Bilateral breast prosthesis are noted LIVER: Liver appears somewhat hypodense suggesting mild fatty infiltration. No focal lesions are seen. GALLBLADDER: Tiny gallstone is seen dependently in the gallbladder. The gallbladder otherwise appears unremarkable. BILE DUCTS: No intrahepatic or extrahepatic ductal dilatation. SPLEEN: Normal size. No focal lesions. PANCREAS: No identified cystic or solid masses. No significant calcifications. No adjacent inflammation or peripancreatic fluid collections. Pancreatic duct not dilated. ADRENALS: Normal. KIDNEYS/URINARY TRACT: 3 small nonobstructing stones are seen in the left kidney. These are unchanged from previous. The largest measures 5 mm. No ureteral stones are seen. Kidneys and ureters otherwise appear unremarkable. Urinary bladder is unremarkable. GI: No dilated bowel loops. No obvious wall thickening. Normal appendix. No significant diverticular disease. PERITONEUM: No ascites or free air. RETROPERITONEUM: No mass or adenopathy. REPRODUCTIVE: No significant abnormality. Suspected in the left ovarian cyst on the prior study is no longer evident. VASCULATURE: No abdominal aortic aneurysm. MUSCULOSKELETAL: No significant abnormality. OTHER: No other abnormality. IMPRESSION: 1. Small nonobstructing stones in the left kidney. No ureteral stones or hydronephrosis is seen. 2. Mild fatty infiltration of the liver. 3. Cholelithiasis. THIS IS AN ELECTRONICALLY VERIFIED FINAL REPORT 10/29/2024 9:12 PM - Electronically signed by Azar Lei M.D. KH: RACHEL Report ID: [id number] Reading Location: [id number] Procedure Note Azar Lei MD - 10/29/2024 EXAM DESCRIPTION: CT ABDOMEN PELVIS WO CONTRAST REASON FOR STUDY: History of kidney stones, suprapubic pain consistentwith prior kidney stone pain with hematuria, Pt reports 2 hours prior to arrival pt started having fever/chills,lower abd pain. Pt reports hx of kidney stones. Pt took 2 norco and ibuprofenprior to arrival. TECHNIQUE: CT scan of the abdomen and pelvis performed without intravenousand without oral contrast using helical scanning technique. Reconstructed coronal and sagittal MPR images reviewed. All images stored on PACS.Automated exposure control was used as a dose optimization technique for this examination. COMPARISON: 09/12/2024 FINDINGS: The sensitivity for detection of visceral lesions is diminished without the use of intravenous contrast. LOWER CHEST: No significant pulmonary abnormalities. No effusion. Bilateral breast prosthesis are noted LIVER: Liver appears somewhat hypodense suggesting mild fattyinfiltration. No focal lesions are seen. GALLBLADDER: Tiny gallstone is seen dependently in the gallbladder. The gallbladder otherwise appears unremarkable. BILE DUCTS: No intrahepatic or extrahepatic ductal dilatation. SPLEEN: Normal size. No focal lesions. PANCREAS: No identified cystic or solid masses. No significant calcifications. No adjacent inflammation or peripancreatic fluidcollections. Pancreatic duct not dilated. ADRENALS: Normal. KIDNEYS/URINARY TRACT: 3 small nonobstructing stones are seen in the left kidney. These are unchanged from previous. The largest measures 5 mm.No ureteral stones are seen. Kidneys and ureters otherwise appearunremarkable. Urinary bladder is unremarkable. GI: No dilated bowel loops. No obvious wall thickening. Normalappendix. No significant diverticular disease. PERITONEUM: No ascites or free air. RETROPERITONEUM: No mass or adenopathy. REPRODUCTIVE: No significant abnormality. Suspected in the leftovarian cyst on the prior study is no longer evident. VASCULATURE: No abdominal aortic aneurysm. MUSCULOSKELETAL: No significant abnormality. OTHER: No other abnormality. IMPRESSION: 1. Small nonobstructing stones in the left kidney. No ureteral stones or hydronephrosis is seen. 2. Mild fatty infiltration of the liver. 3. Cholelithiasis. THIS IS AN ELECTRONICALLY VERIFIED FINAL REPORT 10/29/2024 9:12 PM - Electronically signed by Azar Lei M.D. KH: RACHEL Report ID: [id number] Reading Location: [place] [address] David Lam Jr., MD IMG CT PROCEDURES Iraida l Result * POCT hCG, urine (10/29/2024 7:58 PM CDT) HCG, ur, POC Negative Negative Comment:Testing performed by : [facility], [address] [place] [address]., [address] Urine 10/29/2024 7:58 PM CDT 10/29/2024 7:58 PM CDT David Lam Jr., MD LAB POCT ORDERABLES - DEVICE Final Result [facility] [address] [facility] Department [place] [address] * (ABNORMAL) Urinalysis reflex to microscopic and culture Urine (10/29/2024 7:57 PM CDT) Color, ur Erika Yellow Comment:Testing performed by : [address] [address] Clarity, ur Cloudy(A) Clear KAYLA Comment:Testing performed by : [address] [address] Specific gravity, ur 1.032(H) 1.003 - 1.030 KAYLA Comment:Testing performed by : [address] [address] pH, urine 6.0 KAYLA Comment: Interpretive Data U rine pH is affected by diet, medications, systemic acid-base disturbances, and renal tubular function. pH may affect urinary stone formation. For example, urine pH below 6.0 may help reduce the tendency for calcium phosphate stones and pH greater than 6.0 may reduce the tendency for uric acid stone formation. Source: [facility] [employer] Current Interpretive Data was last revised on 2017 Testing performed by: [address] [address] Protein, ur ql Trace(A) Negative KAYLA Comment:Testing performed by : [address] [address] Glucose, ur ql Negative Negative KAYLA Comment:Testing performed by : [address] [address] Ketones, ur Trace(A) Negative KAYLA Comment:Testing performed by : [address] [address] Bilirubin, ur Negative Negative KAYLA Comment:Testing performed by : [address] [address] Blood, ur 3+(A) Negative KAYLA Comment:Testing performed by : [address] [address] Urobilinogen, ur <2.0 <2.0 mg/dL KAYLA Comment:Testing performed by : [address] [address] Nitrite, ur Negative Negative KAYLA Comment:Testing performed by : [address] [address] Leukocyte esterase, ur 1+(A) Negative KAYLA Comment:Testing performed by : [address] [address] UA reflex comment Reflex to microscopic UA will be performed. KAYLA Comment:Testing performed by : [address] [address] Urine 10/29/2024 7:57 PM CDT 10/29/2024 8:05 PM CDT us David Lam Jr., MD LAB MICROBIOLOGY - GEN ERAL ORDERABLES Final Result Performing Organization Address [facility]/State/[facility] Co de Phone Number KAYLA [address] [facility] Department [place] [address] * (ABNORMAL) Urinalysis, microscopic only (10/29/2024 7:57 PM CDT) WBC, ur 0-5 0 - 5 /HPF Comment:Testing performed by : [address] [address] RBC, ur >50(A) 0 - 2 /HPF KAYLA Comment:Testing performed by : [address] [address] Epithelial cells, squamous, ur 11-20(A) 0 - 5 /HPF KAYLA Comment:Testing performed by : [address] [address] Mucous, ur Present(A) KAYLA Comment:Testing performed by : [address] [address] Culture Reflex Comment Reflex conditions for urine culture (WBC >10) not met. KAYLA Comment:Testing performed by : [address] [address] Urine 10/29/2024 7:57 PM CDT 10/29/2024 8:05 PM CDT us David Lam Jr., MD LAB URINE ORDERABLES F inal Result Performing Organization Address [facility] Co de Phone Number KAYLA [facility] [place] [address] * (ABNORMAL) Lactate (10/29/2024 7:50 PM CDT) Lactate 2.8(H) 0.7 - 2.0 mmol/L Comment:Testing performed by : [address] [address] Blood 10/29/2024 7:50 PM CDT 10/29/2024 7:58 PM CDT us David Lam Jr., MD LAB BLOOD ORDERABLES F inal Result Performing Organization Address [facility] Co de Phone Number KAYLA [facility] [place] [address] * (ABNORMAL) eGFR (10/29/2024 7:50 PM CDT) Pathologist [facility] eGFR 56(L) >=60 mL/min/1. 73 m2 Comment: Interpretive Data Reference Interval Normal >/= 90 mL/min/1.73m2 Mildly decreased* 60 - 89 mL/min/1.73m2 Mildly to moderately decreased 45 - 59 mL/min/1.73m2 Moderately to severely decreased 30 - 44 mL/min/1.73m2 Severely decreased 15 - 29 mL/min/1.73m2 Kidney Failure < 15 mL/min/1.73m2 *Relative to young adult level Estimated glomerular filtration rate is determined by the 2020 CKD-EPI equation recommended by the National Kidney Foundation (A Unifying Approach to GFR Estimation: Recommendations of the NKF-ASK Task Force on Reassessing the Inclusion of Race in Diagnosing Kidney Disease, JASN 2020). The CKD-EPI equation should not be used for patients with unstable renal function and has not been validated in children and those over 70. Current interpretive data was last reviewed 2020. Testing performed by: [address] [address] Blood 10/29/2024 7:50 PM CDT 10/29/2024 7:58 PM CDT us David Lam Jr., MD LAB BLOOD ORDERABLES F inal Result KAYLA JALLOH [address] [facility] Department [place] [address] * (ABNORMAL) Differential, auto (10/29/2024 7:50 PM CDT) Neutrophil abs 7.37(H) 1.50 - 6.50 K/cumm Comment:Testing performed by : [address] [address] Imm gran abs 0.03 0.00 - 0.10 K/cumm KAYLA Comment:Testing performed by : [address] [address] Lymphocyte abs 1.58 0.80 - 3.30 K/cumm KAYLA Comment:Testing performed by : [address] [address] Monocyte abs 0.88(H) 0.20 - 0.80 K/cumm KAYLA Comment:Testing performed by : [address] [address] Eosinophil abs 0.05 0.00 - 0.50 K/cumm KAYLA Comment:Testing performed by : [address] [address] Basophil abs 0.04 0.00 - 0.10 K/cumm KAYLA Comment:Testing performed by : [address] [address] Neutrophil pct 74.1 % KAYLA Comment: Interpretive Data Percent cell count reference ranges are not reported, since discordance with absolute values may lead to misinterpretation of CBC data. Current Interpretive Data was last revised on 2017. Testing performed by: [address] [address] Imm gran pct 0.3 % KAYLA Comment: Interpretive Data Percent cell count reference ranges are not reported, since discordance with absolute values may lead to misinterpretation of CBC data. Current Interpretive Data was last revised on 2017. Testing performed by: [address] [address] Lymphocyte pct 15.9 % [facility] Comment: Interpretive Data Percent cell count reference ranges are not reported, since discordance with absolute values may lead to misinterpretation of CBC data. Current Interpretive Data was last revised on 2017. Testing performed by: [address] [address] Monocyte pct 8.8 % [facility] Comment: Interpretive Data Percent cell count reference ranges are not reported, since discordance with absolute values may lead to misinterpretation of CBC data. Current Interpretive Data was last revised on 2017. Testing performed by: [address] [address] Eosinophil pct 0.5 % [facility] Comment: Interpretive Data Percent cell count reference ranges are not reported, since discordance with absolute values may lead to misinterpretation of CBC data. Current Interpretive Data was last revised on 2017. Testing performed by: [address] [address] Basophil pct 0.4 % [facility] Comment: Interpretive Data Percent cell count reference ranges are not reported, since discordance with absolute values may lead to misinterpretation of CBC data. Current Interpretive Data was last revised on 2017. Testing performed by: [address] [address] Blood 10/29/2024 7:50 PM CDT 10/29/2024 7:58 PM CDT us David Lam Jr., MD LAB BLOOD ORDERABLES F inal Result KAYLA [address] [facility] Department [place] [address] * (ABNORMAL) CBC with auto differential (10/29/2024 7:50 PM CDT) WBC 9.95(H) 3.80 - 9.90 K/cumm Comment:Testing performed by : [address] [place]., [address] Hgb 13.8 11.9 - 15.5 g/dL KAYLA Comment:Testing performed by : [address] [address] Hct 41.5 35.6 - 45.5 % KAYLA Comment:Testing performed by : [address] [address] Plt 210 150 - 400 K/cumm KAYLA Comment:Testing performed by : [address] [address] MPV 13.4(H) 9.1 - 12.3 fL KAYLA Comment:Testing performed by : [address], [address] RBC 4.47 3.90 - 5.20 M/cumm KAYLA Comment:Testing performed by : [address], [address] MCV 92.8 81.3 - 96.4 fL KAYLA Comment:Testing performed by : [address] [address] MCH 30.9 27.1 - 33.3 pg KAYLA Comment:Testing performed by : [address], [address] MCHC 33.3 32.3 - 35.7 g/dL KAYLA Comment:Testing performed by : [address], [address] RDW CV 13.6 11.1 - 14.9 % KAYLA Comment:Testing performed by : [address], [address] RDW SD 46.5 35.7 - 48.1 fL KAYLA Comment:Testing performed by : [address], [address] NRBC abs 0.00 0.00 - 0.01 K/cumm KAYLA Comment:Testing performed by : [address] [address] Blood 10/29/2024 7:50 PM CDT 10/29/2024 7:58 PM CDT David Lam Jr., MD LAB BLOOD ORDERABLES F inal Result Performing Organization Address City/[facility] Co de Phone Number KAYLA [address] [address] * Lipase (10/29/2024 7:50 PM CDT) Pathologist [facility] Lipase 39 10 - 99 Units/L Comment:Testing performed by : [address] [address] Blood 10/29/2024 7:50 PM CDT 10/29/2024 7:58 PM CDT us David Lam Jr., MD LAB BLOOD ORDERABLES F inal Result Performing Organization Address [facility] Co de Phone Number KAYLA [address] [address] * (ABNORMAL) Comprehensive metabolic panel (10/29/2024 7:50 PM CDT) Pathologist [facility] Sodium 139 135 - 145 mmol/L Comment:Testing performed by : [address] [address] Potassium, pl 4.0 3.3 - 4.9 mmol/L KAYLA Comment:Testing performed by : [address] [address] Chloride 104 97 - 110 mmol/L KAYLA Comment:Testing performed by : [address] [address] CO2 22 22 - 32 mmol/L KAYLA Comment:Testing performed by : [address] [address] Anion gap 13 2 - 15 mmol/L KAYLA Comment:Testing performed by : [address] [address] BUN 14 6 - 25 mg/dL KAYLA Comment:Testing performed by : [address] [address] Creatinine 1.17(H) 0.60 - 1.10 mg/dL KAYLA Comment:Testing performed by : [address] [address] Glucose 146 70 - 199 mg/dL KAYLA Comment: Interpretive Data Fasting glucose >/= 126 mg/dl is diagnostic for diabetes. Fasting is defined as no caloric intake for at least 8 hours. Fasting glucose between 100 mg/dl to 125 mg/dl is diagnostic of prediabetes. In a patient with classic symptoms of hyperglycemia or hyperglycemic crisis, a random glucose >/= 200 mg/dl is diagnostic for diabetes. In the absence of unequivocal hyperglycemia, results should be confirmed by repeat testing. The classification and Diagnosis of Diabetes Diabetes Care 2021; 46: S19-S40. Current interpretive data was last revised 2022. Testing performed by: [address] [address] Calcium 9.6 8.5 - 10.3 mg/dL KAYLA Comment:Testing performed by : [address] [address] Bilirubin, total 0.3 0.1 - 1.2 mg/dL [facility] Comment:Testing performed by : [address] [address] Protein, pl 7.5 6.5 - 8.5 g/dL [facility] Comment:Testing performed by : [address] [address] Albumin 4.4 3.5 - 5.0 g/dL [facility] Comment:Testing performed by : [address] [address] Alk phos 53 40 - 130 Units/L KAYLA Comment:Testing performed by : [address] [address] ALT 41 7 - 45 Units/L KAYLA Comment:Testing performed by : [address] [address] AST 36 10 - 45 Units/L KAYLA Comment:Testing performed by : [address] [address] Blood 10/29/2024 7:50 PM CDT 10/29/2024 7:58 PM CDT us David Lam Jr., MD LAB BLOOD ORDERABLES F inal Result Performing Organization Address [facility] Co de Phone Number [address] [address] * Urine culture Urine, bladder (10/17/2024 1:57 PM CDT) Report Final Report: Less than 100,000 colonies/mL (clinically insignificant growth based on current clinical standards) Comment:Testing performed by : [facility], [address] [facility] [address] Organism (CLINICALLY INSIGNIFICANT GROWTH [facility] Urine, bladder 10/17/2024 1: 57 PM CDT 10/18/2024 12:16 AM CDT Narrative [facility] - 10/19/2024 7:39 AM CDT Testing performed by [facility] Microbiology Laboratory ([phone]) us Mary Aldana MD LAB MICROBIOLOGY - GENERAL ORDERABLES Final Result Performing Organization Address [facility] de Phone Number [address] [address] * (ABNORMAL) POCT urinalysis dipstick (10/17/2024 1:56 PM CDT) Color, Urine, POC Yellow Clarity, ur, POC Clear Clear Glucose, ur, POC Negative Negative Bilirubin, ur, POC Negative Negative Ketones, ur, POC Negative Negative Specific Mason, POC 1.020 1.003 - 1.030 Blood, ur, POC Moderate(A) Negative pH, ur, POC 6.0 5.0 - 8.0 Protein, ur, POC 30.(A) Negative Urobilinogen, urine, POC 0.2 0.2 - 1.0 mg/dL Nitrite, ur, POC Negative Negative Leukocytes, ur, POC Negative Negative Lot Number [id number] Urine 10/17/2024 1:56 PM CDT Mary Aldana MD POINT OF CARE TEST ORDERAB LES Final Result * HM DIABETES EYE EXAM (02/23/2024) Historical Provider HEALTH MAINTENANCE Final Result * High Risk HPV DNA Detection with Genotyping (Molecular component) (08/11/2023 2:21 PM CDT) HPV HR 16 Not Detected Not Detected [facility] Comment:Testing performed by : [facility], [address] [place]., [address] HPV HR 18 Not Detected Not Detected KAYLA JALLOH Comment:Testing performed by : [facility], [address] [place]., [address] HPV HR Non 16/18 Not Detected Not Detected KAYLA JALLOH Comment: Interpretive Data Nucleic acid amplification for detection of high-risk Human Papilloma virus (HPV) is performed by the Ernesto Eladio 6800 HPV test. This assay specifically detects HPV-16 and HPV-18 genotypes. The following HPV genotypes are detected as high-risk HPV: HPV-31, 33, 35, ,39, 45, 51, 52, 56, 58, 59, 66, and 68. This assay has been approved by the [place] Food and Drug Administration for detection of HPV in cervical specimens collected by a physician using an endocervical brush/spatula or cervical broom and placed in the ThinPrep Pap Test PreservCyt collection containers. The performance characteristics of this test have been verified by the [facility] Molecular Infectious Disease laboratory. Correlate with separately reported cytology results, as applicable. Interpretive data last revised 22 Testing performed by: [facility], [address] [place]., [address] Endocervical 08/11/2023 2:21 PM CDT 08/12/2023 11:25 AM CDT Narrative KAYLA JALLOH - 08/12/2023 7:00 PM CDT Clinical history and diagnosis->routine Number of vials->1 Testing type->Screening Last menstrual period (date if known)->07/22/23 Mary Aldana MD LAB BODY FLUIDS AND STOOLS ORDERABLES Final Result KAYLA [address] [facility] Department [place] [address] [facility] * Hepatitis C antibody Blood (05/11/2023 2:24 PM CDT) Hep C Ab NON-REACTI VE NON-REACT CHERELLE [facility] Comment: HCV antibody was non-reactive. There is no laboratory evidence of HCV infection. In most cases, no further action is required. However, if recent HCV exposure is suspected, a test for HCV RNA (test code 01450) is suggested. For additional information please refer to http://education.One Season/faq/NJE38m3 (This link is being provided for informational/ educational purposes only.) Blood 05/11/2023 2:24 PM CDT 05/11/2023 2:24 PM CDT Radha Peterson MD LAB MICROBIOLOGY - GENERAL ORDERABLES Final Result Performing Organization Address City/[facility]/ZIP Co de Phone Number [facility] [address] [place] [address] * COLONOSCOPY (08/29/2021) Scribed Colonoscopy Abnormal Comment:poylp Historical Provider HEALTH MAINTENANCE Final Result from Last 3 Months or Most Recently Relevant to Health Maintenance [place] For more information, please contact: [phone] * Full Code (Latest Code Status on File) Date Activated Date Inactivated Comments 09/11/2021 2:46 PM 09/12/2021 8:33 PM Care Teams Commercial Pilot Relationship Specialty Start Date End Date Radha Peterson MD PCP - General Family Medicine 06/19/20 Chandler Gamble MD Consulting Physician Cardiology 04/15/21
--- OUTSIDE RECORDS SUMMARY | 2025-01-09 14:44 | XMS_ITS | Encounter Summary ---
Author Organization 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 Historical Provider [facility] ALETHA TADEO Final Result documented in this encounter Visit Diagnoses Not on filedocumented in this encounter Additional Health Concerns Infection Onset Date Last Indicated Resolved Time COVID: Suspected 02/11/2021 02/11/2021 02/12/2021 4:05 AM TAX ACCOUNTING MANAGER COVID: Suspected 09/19/2023 09/19/2023 09/19/2023 9:06 PM CDT documented as of this encounter Care Teams Integration Developer Relationship Specialty Start Date End Date Radha Peterson MD PCP - General Family Medicine 06/19/20 Chandler Gamble MD Consulting Physician Cardiology 04/15/21 documented as of this encounter
--- OUTSIDE RECORDS SUMMARY | 2025-01-09 14:44 | XMS_ITS | Clinical Summary ---
Author Organization [facility] Address [address] [place] [id number] Care Team Providers Care Assembler Knife Name Role Phone Unavailable Primary Care Provider Unavailabl e Social History Tobacco Use Types Packs/Day Years Used Date Smoking Tobacco: Never Assessed Comments Unknown Sex and Gender Information Value Date Recorded Sex Assigned at Not on file Legal Sex Female 6:28 PM CDT Gender Identity Not on file Sexual Orientation Not on file Last Filed Vital Signs Vital Sign Reading Time Taken Comments Blood Pressure 122/70 09/19/2015 11:55 AM CDT Pulse - - Temperature - - Respiratory Rate - - Oxygen Saturation - - Inhaled Oxygen Concentration - - Weight 61.2 kg (135 lb) 09/19/2015 11:55 AM CDT Height 160 cm (5' 3) 09/19/2015 11:55 AM CDT Body Mass Index 23.91 09/19/2015 11:55 AM CDT Plan of Treatment Health Maintenance Due Date Last Done Comments Cervical Cancer Screening Pa p Smear (Age 30 to 64) Every 3 Years 1971 Colorectal Cancer Screening Colonoscopy (10 Years) 1971 Annual Physical 12/10/1974 Hepatitis C 12/10/1989 DTaP, Tdap and Td Vaccines ( 1 - Tdap) 12/10/1990 Hepatitis B Vaccines (1 of 3 - 19+ 3-dose series) 12/10/1990 Cervical Cancer Screening Pa p with HPV Testing (Age 30 to 64) Every 5 Years 12/10/2001 Cervical Cancer Screening with HPV 12/10/2001 Mammogram Screening 2011 Pneumococcal Vaccine: 50+ Ye ars (1 of 1 - PCV) 12/10/2021 Zoster Vaccines (1 of 2) 12/10/2021 COVID-19 Vaccine ( - 2024-2 6 season) 2024 Influenza Adult (#1) 2024 Hepatitis A Vaccines Aged Out No long er eligible based on patient's age to complete this topic Meningococcal B Vaccine Aged Out No l onger eligible based on patient's age to complete this topic Meningococcal Vaccine Aged Out No jaci jorge eligible based on patient's age to complete this topic RSV Immunizations Under 20 Months Aged Out No longer eligible based on patient's age to complete [place] [address] MEDICAID
--- OUTSIDE RECORDS SUMMARY | 2025-01-09 14:45 | XMS_ITS | Encounter Summary ---
Author Organization [facility] Address [address] [place] [address] Care Team Providers Care Pack Worker Name Role Phone Radha Peterson MD Primary Care Pro vider Chandler Gamble MD Unavailable [phone] Encounter Details Date Type Department Care Team (Late st Contact Info) Description 11/24/2024 Results Follow-Up 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 Monthly or less 11/24/2024 8:51 AM Sonal Varghese MA Q2: How many drinks containing alcohol do you have on a typical day when you are drinking? 1 or 2 11/24/2024 8:51 AM Sonal Varghese MA Q3: How often do you have six or more drinks on one occasion? Never 11/24/2024 8:51 AM Sonal Varghese MA * BP Location Answer Date of Assessment Author Left arm 11/24/2024 8:51 AM Jeffry Varghese MA documented as of this encounter Plan of Treatment Not on file documented as of this encounter Visit Diagnoses Not on filedocumented in this encounter Care Teams Pack Worker Relationship Specialty Start Date End Date Radha Peterson MD PCP - General Family Medicine 06/19/20 Chandler Gamble MD Consulting Physician Cardiology 04/15/21 documented as of this encounter
--- OUTSIDE RECORDS SUMMARY | 2025-01-09 14:45 | XMS_ITS | Encounter Summary ---
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 us Historical Provider Final Res ult * CARDIOLOGY REPORT (06/26/2015 12:00 AM CDT) Anatomical Region Laterality Modality Other Narrative 06/26/2015 12:00 AM CDT Ordered by an unspecified provider. us Historical Provider [facility] Final Result documented in this encounter Visit Diagnoses Not on filedocumented in this encounter Additional Health Concerns Infection Onset Date Last Indicated Resolved Time COVID: Suspected 02/11/2021 02/11/2021 02/12/2021 4:05 AM LAWN MOWER OPERATOR COVID: Suspected 09/19/2023 09/19/2023 09/19/2023 9:06 PM CDT documented as of this encounter Care Teams Curtain Framer Relationship Specialty Start Date End Date Radha Peterson MD PCP - General Family Medicine 06/19/20 Chandler Gamble MD Consulting Physician Cardiology 04/15/21 documented as of this encounter
--- OUTSIDE RECORDS SUMMARY | 2025-01-09 14:45 | XMS_ITS | Encounter Summary ---
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
--- OUTSIDE RECORDS SUMMARY | 2025-01-09 14:45 | XMS_ITS | Encounter Summary ---
Author Organization [facility] Address [address] [place] [address] Phone Care Team Providers Care Management Lead Name Role Phone Radha Peterson MD Primary Care Pro vider Chandler Gamble MD Unavailable [phone] Encounter Details Date Type Department Care Team (Late st Contact Info) Description 12/28/2024 Results Follow-Up [facility] ([facility] - [facility] Medicine Urology [address] [facility] [address]th [place] [address] [place] [address] Fredrick Barragan MD [address] [facility] [address] [place], [place] [id number] Calculus analysis-stone Social History Tobacco Use Types Packs/Day Years [...] on file 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
--- OUTSIDE RECORDS SUMMARY | 2025-01-09 14:45 | XMS_ITS | Encounter Summary ---
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 Historical Provider [facility] Final Result * CARDIOLOGY REPORT (08/08/2015 12:00 AM CDT) Anatomical Region Laterality Modality Other Narrative 08/08/2015 12:00 AM CDT Ordered by an unspecified provider. us Historical Provider [facility] TADEO Final Result documented in this encounter Visit Diagnoses Not on filedocumented in this encounter Additional Health Concerns Infection Onset Date Last Indicated Resolved Time COVID: Suspected 02/11/2021 02/11/2021 02/12/2021 4:05 AM EVENT SPECIALIST COVID: Suspected 09/19/2023 09/19/2023 09/19/2023 9:06 PM CDT documented as of this encounter Care Teams Firer Low Pressure Relationship Specialty Start Date End Date Radha Peterson MD PCP - General Family Medicine 06/19/20 Chandler Gamble MD Consulting Physician Cardiology 04/15/21 documented as of this encounter
== END 2025-01-09 13:37 | disposition home or self-care (01) ==
LOC: ANHIMG 13:39
PROVIDERS: PCP Hospitalist; Visit Provider Physician Assistant Surgical
DX: M20.019 Mallet finger of unspecified finger(s) (principal)
CPT/HCPCS: 73140